=== PATIENT | male | born 1955 | race Caucasian/White ===

== ENCOUNTER 2016-06-02 07:14 | Inpatient (IN) | payer BC, MEDICAID ==
[~2016-06-02] VITALS: Ht 177.8 cm; Wt 86.2 kg
[~2016-06-02 07:14] MED LIST: ACET160S3 GT; ALBU1.257 IH; AMIN30LI4 GT; BISA10SU8 RC; CHLO15MO2 MM; CHOL100044 GT; DEXT1CAP3 GT; DEXT30DR6 EACHEYE; DOCU50LI GT; EPOE40003 SQ; IPRA0.2S9 IH; LEVO175T7 GT; MAGN400O6 GT; METO25TA20 GT; MULT1TAB11 GT; NA P133E RC; NUT.237L67 GT; SENN8.6T6 GT
[2016-06-02 07:28] VITALS: BP 158/82
[2016-06-02] MEDS ORDERED: IV NS 0.9% 1,000 ML BAG IV ONE (07:30)
[2016-06-02] MEDS ORDERED: IV NS 0.9% 1,000 ML ONE (07:32)
[2016-06-02 08:03] LABS: BASOPHILS % (AUTO) 0.1 % (0.0-2.0); DIFF TOTAL % 100 %; EOSINOPHILS # (AUTO) 0.2 /CMM (0.0-0.7); EOSINOPHILS % (AUTO) 1.3 % (0.0-6.0); HEMATOCRIT 33 % (39-51); HEMOGLOBIN 10.8 g/dL (13.5-17.5); LYMPHOCYTES % (AUTO) 6.4 % (20.0-44.0); MEAN CORPUSCULAR HEMOGLOBIN 27 PG (26.0-33.0); MEAN CORPUSCULAR HGB CONC 33 g/dl (31.0-36.0); MEAN CORPUSCULAR VOLUME 81 fL (80-96); MONOCYTES % (AUTO) 6.4 % (2.0-12.0); NEUTROPHILS # (AUTO) 12.8 /CMM (1.8-8.9); NEUTROPHILS % (AUTO) 85.8 % (43.0-81.0); PLATELET COUNT (AUTO) 347 /CMM (150-450); RED BLOOD CELL COUNT(AUTO) 4.06 MIL/uL (4.5-6.0); WHITE BLOOD COUNT (AUTO) 14.9 K/uL (4.3-11.0)
[2016-06-02 08:17] LABS: INR 1.09 (0.87-1.13); PROTHROMBIN TIME 11.8 SECS (9.5-12.7)
[2016-06-02 08:20] LABS: TROPONIN I 0.055 ng/mL (0.00-0.056)
[2016-06-02] MEDS ORDERED: CARV12.52 GT (08:24)
[2016-06-02] MEDS ORDERED: PANT40SU2 GT (08:24)
[2016-06-02] MEDS ORDERED: LEVE100S GT (08:24)
[2016-06-02] MEDS ORDERED: FERR220S2 GT (08:24)
[2016-06-02] MEDS ORDERED: ACET-2605 GT (08:24)
[2016-06-02] MEDS ORDERED: RIVA10TA GT (08:24)
[2016-06-02] MEDS ORDERED: ASCO500S2 GT (08:24)
[2016-06-02] MEDS ORDERED: ACET160S3 GT (08:24)
[2016-06-02] MEDS ORDERED: ALBU2.5V12 IH ×2 (08:24)
[2016-06-02] MEDS ORDERED: AMIO200T2 GT (08:24)
[2016-06-02] MEDS ORDERED: ZINC220C8 GT (08:24)
[2016-06-02] MEDS ORDERED: LEVO125T8 GT (08:24)
[2016-06-02] MEDS ORDERED: LACT-209 GT (08:26)
[2016-06-02 08:27] LABS: CALCIUM, SERUM 9.1 mg/dL (8.5-10.1); CREATININE 0.8 mg/dL (0.6-1.3); POTASSIUM 3.9 mmol/L (3.5-5.1)
[2016-06-02 08:31] LABS: LACTIC ACID 1.5 mmol/L (0.4-2.0)
[2016-06-02 08:33] LABS: BILIRUBIN,DIRECT 0.1 mg/dL (0.0-0.2); BILIRUBIN,TOTAL 0.5 mg/dL (0.2-1.0); INDIRECT BILIRUBIN 0.4 mg/dL (0.0-1.1); TOTAL PROTEIN, SERUM 6.8 g/dL (6.4-8.2)
[2016-06-02 08:54] VITALS: BP 106/65
[2016-06-02] MEDS ORDERED: IOHEXOL-350 100 ML VIAL IV ONE (09:01)
[2016-06-02] MEDS ORDERED: CT SWABBABLE VALVE TRANS SET 1 EA INFUS.SET MC ONE (09:01)
[2016-06-02] MEDS ORDERED: IV NS 0.9% 250 ML IV ONE ×2 (09:01→18:30)
[2016-06-02 09:02] LABS: ABG BASE EXCESS 4.9 mmol/L; ABG HCO3 28.8 mmol/L; ABG NOTIFIED BY AS RRT.; ABG PCO2 39.9 mmHg (35.0-45.0); ABG PH 7.476 (7.350-7.450); ABG PO2 141.6 mmHg (75.0-100.0); ABG TOTAL HEMOGLOBIN 11.1 G/dL (13.5-18.0); ALLEN TEST Pass; AaDO2 531.5 mmHg; O2Hb 97.7 % (94.0-97.0)
[2016-06-02 09:17] LABS: KETONES,URINE NEGATIVE (NEGATIVE); LEUKOCYTE ESTERASE ,URINE 2+ (NEGATIVE)
[2016-06-02] MEDS ORDERED: LEVOFLOXACIN 750 MG /D5W 150ML 150 ML IV ONE ×2 (09:25→09:30)
[2016-06-02] MEDS ORDERED: IV SET PRIMARY PUMP SET 1 EA INFUS.SET MC ONE ×3 (09:25→18:29)
[2016-06-02] MEDS ORDERED: VANCOMYCIN 1 GM in IV D5W 250 ML IV ONE (09:30)
[2016-06-02] MEDS ORDERED: PIPERACILLIN /TAZOBACTAM 3.375 G in IV D5W 50 ML IV ONE (09:30)
[2016-06-02 09:34] LABS: ADD UA MICROSCOPIC YES
[2016-06-02 09:43] LABS: RBC,URINE 81-100 /HPF (0-2)
[2016-06-02 09:44] LABS: ADD URINE CULTURE YES
[2016-06-02 12:30] VITALS: BP 99/57
[2016-06-02] MEDS ORDERED: BUMETANIDE INJ 6 MG in IV D5W 36 ML IV ONE (14:30)
[2016-06-02] MEDS ORDERED: PIPERACILLIN /TAZOBACTAM 3.375 G in IV D5W 50 ML IV SCH ×2 (14:30→18:00)
[2016-06-02] MEDS ORDERED: FEE PK DOSING 1 MIN EA MC ONE (15:28)
[2016-06-02] MEDS ORDERED: LEVOFLOXACIN 750 MG /D5W 150ML 750 MG in PREMIX 1 EA IV SCH (15:30)
[2016-06-02 16:00] VITALS: BP 104/47
[2016-06-02] MEDS ORDERED: ALBUTEROL FS 2.5 MG/0.5 ML VIAL.NEB IH PRN (17:00)
[2016-06-02] MEDS ORDERED: IPRATROPIUM NEB FS 0.5 MG/2.5 ML AMPUL.NEB IH PRN (17:00)
[2016-06-02] MEDS ORDERED: RIVAROXABAN 15 MG TABLET GT SCH (18:00)
[2016-06-02] MEDS ORDERED: SECONDARY IV SET 1 EA INFUS.SET MC ONE (18:30)
[2016-06-02] MEDS ORDERED: FIBERSOURCE HN 1,000 ML BOTTLE GT PRN (18:30)
[2016-06-02] MEDS ORDERED: ACETAMINOPHEN ES 500 MG TABLET GT PRN (18:30)
[2016-06-02] MEDS: DOCUSATE SODIUM LIQ 100 MG/10 ML UDC GT SCH (18:33)
[2016-06-02] MEDS: CHOLECALCIFEROL 1,000 UNIT TABLET (VIT D3) GT SCH (18:33)
[2016-06-02] MEDS: PIPERACILLIN /TAZOBACTAM 4.5 G in IV D5W 50 ML IV SCH (18:33)
[2016-06-02] MEDS: FERROUS SULFATE UDC 300 MG/5 ML UDC GT SCH (18:33)
[2016-06-02] MEDS: AMIODARONE HCL 200 MG TABLET GT SCH (18:35)
[2016-06-02] MEDS: PROSOURCE / PROSTAT (PYXIS) 30 ML UDC GT SCH (18:36)
[2016-06-02] MEDS: VANCOMYCIN 1 GM in IV D5W 250 ML IV SCH (19:28)
[2016-06-02 20:00] VITALS: BP 94/45
[2016-06-02] MEDS: ALBUTEROL FS 2.5 MG/0.5 ML VIAL.NEB IH SCH (20:02)
[2016-06-02] MEDS: IPRATROPIUM NEB FS 0.5 MG/2.5 ML AMPUL.NEB IH SCH (20:03)
[2016-06-02] MEDS: CARVEDILOL 12.5 MG TABLET GT SCH (21:00)
[2016-06-02] MEDS: LEVETIRACETAM SOL (5 ML) 100 MG/ML UDC GT SCH (22:11)
[2016-06-02] MEDS: SENNOSIDES 8.6 MG TABLET GT SCH (22:12)
[2016-06-03] VITALS (16 sets, daily range): BP systolic 68–109; BP diastolic 38–66
[2016-06-03] MEDS: PIPERACILLIN /TAZOBACTAM 4.5 G in IV D5W 50 ML IV SCH ×5 (00:08→23:19)
[2016-06-03] MEDS: IPRATROPIUM NEB FS 0.5 MG/2.5 ML AMPUL.NEB IH SCH ×4 (01:27→20:00)
[2016-06-03] MEDS: ALBUTEROL FS 2.5 MG/0.5 ML VIAL.NEB IH SCH ×4 (01:27→20:00)
[2016-06-03] MEDS: VANCOMYCIN 1 GM in IV D5W 250 ML IV SCH ×3 (01:41→18:00)
[2016-06-03] MEDS: LEVOTHYROXINE SODIUM 125 MCG TABLET PO SCH (06:40)
[2016-06-03 07:49] LABS: BASOPHILS % (AUTO) 0.3 % (0.0-2.0); DIFF TOTAL % 100 %; EOSINOPHILS # (AUTO) 0.4 /CMM (0.0-0.7); EOSINOPHILS % (AUTO) 4.1 % (0.0-6.0); HEMATOCRIT 29 % (39-51); HEMOGLOBIN 9.6 g/dL (13.5-17.5); LYMPHOCYTES # (AUTO) 0.6 /CMM (0.8-4.8); MEAN CORPUSCULAR HEMOGLOBIN 27 PG (26.0-33.0); MEAN CORPUSCULAR HGB CONC 33 g/dl (31.0-36.0); MEAN CORPUSCULAR VOLUME 82 fL (80-96); MONOCYTES # (AUTO) 0.7 /CMM (0.1-1.30); MONOCYTES % (AUTO) 6.4 % (2.0-12.0); NEUTROPHILS # (AUTO) 8.9 /CMM (1.8-8.9); NEUTROPHILS % (AUTO) 83.2 % (43.0-81.0); PLATELET COUNT (AUTO) 309 /CMM (150-450); RED BLOOD CELL COUNT(AUTO) 3.59 MIL/uL (4.5-6.0); WHITE BLOOD COUNT (AUTO) 10.6 K/uL (4.3-11.0)
[2016-06-03 07:58] LABS: CALCIUM, SERUM 8.2 mg/dL (8.5-10.1); CREATININE 0.9 mg/dL (0.6-1.3)
[2016-06-03 08:17] LABS: INR 1.16 (0.87-1.13); PROTHROMBIN TIME 12.6 SECS (9.5-12.7)
[2016-06-03 08:32] LABS: POTASSIUM 2.7 mmol/L (3.5-5.1)
[2016-06-03] MEDS ORDERED: IV NS 0.9% 250 ML IV ONE ×4 (08:51→20:54)
[2016-06-03] MEDS ORDERED: LEVOTHYROXINE SODIUM 125 MCG TABLET GT SCH (09:00)
[2016-06-03] MEDS ORDERED: VANCOMYCIN 1 GM in IV D5W 250 ML IV SCH (09:00)
[2016-06-03] MEDS: DOCUSATE SODIUM LIQ 100 MG/10 ML UDC GT SCH ×2 (09:00→16:44)
[2016-06-03] MEDS ORDERED: POTASSIUM CHLORIDE 20 MEQ POWDER PACKET GT ONE (09:00)
[2016-06-03] MEDS ORDERED: ASCORBIC ACID SYRUP 500 MG/5 ML UDC GT SCH (09:00)
[2016-06-03] MEDS: AMIODARONE HCL 200 MG TABLET GT SCH ×3 (09:00→16:44)
[2016-06-03] MEDS: CARVEDILOL 12.5 MG TABLET GT SCH ×2 (09:00→20:54)
[2016-06-03] MEDS ORDERED: CHOLECALCIFEROL 1,000 UNIT TABLET (VIT D3) GT SCH (09:00)
[2016-06-03] MEDS ORDERED: LEVETIRACETAM SOL (5 ML) 100 MG/ML UDC GT SCH (09:10)
[2016-06-03] MEDS ORDERED: SECONDARY IV SET 1 EA INFUS.SET MC ONE (09:31)
[2016-06-03] MEDS: CHOLECALCIFEROL 1,000 UNIT TABLET (VIT D3) GT SCH (09:46)
[2016-06-03] MEDS: MULTIVITAMINS,THERAPEUTIC 1 UDTAB TABLET GT SCH (09:46)
[2016-06-03] MEDS: PANTOPRAZOLE 40 MG/PACK PACK GT SCH (09:46)
[2016-06-03] MEDS: ZINC SULFATE 220 MG CAPSULE GT SCH (09:46)
[2016-06-03] MEDS: ACETAMINOPHEN 650 MG/20.3 ML UDC GT SCH (09:47)
[2016-06-03] MEDS: PROSOURCE / PROSTAT (PYXIS) 30 ML UDC GT SCH ×2 (09:47→16:44)
[2016-06-03] MEDS: FERROUS SULFATE UDC 300 MG/5 ML UDC GT SCH ×2 (09:47→16:44)
[2016-06-03] MEDS: LEVETIRACETAM SOL (5 ML) 100 MG/ML UDC GT SCH ×2 (09:52→20:54)
[2016-06-03] MEDS: POTASSIUM CL. PREMIX PERIPHER. 50 ML IV SCH ×4 (10:01→12:36)
[2016-06-03] MEDS ORDERED: IV SET PRIMARY PUMP SET 1 EA INFUS.SET MC ONE ×2 (10:04→11:53)
[2016-06-03] MEDS: LEVOFLOXACIN 750 MG /D5W 150ML 750 MG in PREMIX 1 EA IV SCH ×2 (10:19→10:20)
[2016-06-03] MEDS: Z GUARD REMEDY 2 OZ OINT TP SCH (11:28)
[2016-06-03] MEDS ORDERED: IV NS 0.9% 500 ML IV ONE (11:45)
[2016-06-03 12:58] LABS: THYROID STIMULATING HORMONE 38.508 uIU/mL (0.358-3.74)
[2016-06-03] MEDS ORDERED: ASCORBIC ACID 500 MG TABLET PO SCH (13:00)
[2016-06-03 13:15] LABS: TROPONIN I 0.025 ng/mL (0.00-0.056)
[2016-06-03 14:38] LABS: THYROID STIMULATING HORMONE 37.466 uIU/mL (0.358-3.74); URIC ACID 5.1 mg/dL (2.6-7.2)
[2016-06-03] MEDS: FIBERSOURCE HN 1,000 ML BOTTLE GT PRN (18:25)
[2016-06-03] MEDS: SENNOSIDES 8.6 MG TABLET GT SCH (22:00)
[2016-06-04] VITALS (7 sets, daily range): BP systolic 84–109; BP diastolic 45–63
[2016-06-04] MEDS ORDERED: ALBUMIN 25% 25 GM in PREMIX 1 EA IV SCH (01:30)
[2016-06-04] MEDS ORDERED: ALBUMIN 25% 100 ML IV ONE (01:47)
[2016-06-04] MEDS ORDERED: IV SET PRIMARY PUMP SET 1 EA INFUS.SET MC ONE (01:49)
[2016-06-04] MEDS: IPRATROPIUM NEB FS 0.5 MG/2.5 ML AMPUL.NEB IH SCH ×4 (01:54→19:48)
[2016-06-04] MEDS: ALBUTEROL FS 2.5 MG/0.5 ML VIAL.NEB IH SCH ×4 (01:54→19:48)
[2016-06-04] MEDS: PIPERACILLIN /TAZOBACTAM 4.5 G in IV D5W 50 ML IV SCH ×4 (05:54→23:52)
[2016-06-04] MEDS: ACETAMINOPHEN 650 MG/20.3 ML UDC GT PRN (06:10)
[2016-06-04 06:11] LABS: BASOPHILS % (AUTO) 0.3 % (0.0-2.0); DIFF TOTAL % 100 %; EOSINOPHILS # (AUTO) 0.4 /CMM (0.0-0.7); EOSINOPHILS % (AUTO) 3.6 % (0.0-6.0); HEMATOCRIT 27 % (39-51); HEMOGLOBIN 8.7 g/dL (13.5-17.5); LYMPHOCYTES # (AUTO) 0.7 /CMM (0.8-4.8); LYMPHOCYTES % (AUTO) 6.6 % (20.0-44.0); MEAN CORPUSCULAR HEMOGLOBIN 27 PG (26.0-33.0); MEAN CORPUSCULAR HGB CONC 32 g/dl (31.0-36.0); MEAN CORPUSCULAR VOLUME 82 fL (80-96); MONOCYTES # (AUTO) 0.7 /CMM (0.1-1.30); MONOCYTES % (AUTO) 6.7 % (2.0-12.0); NEUTROPHILS % (AUTO) 82.8 % (43.0-81.0); PLATELET COUNT (AUTO) 257 /CMM (150-450); RED BLOOD CELL COUNT(AUTO) 3.27 MIL/uL (4.5-6.0); WHITE BLOOD COUNT (AUTO) 10.9 K/uL (4.3-11.0)
[2016-06-04 06:19] LABS: CALCIUM, SERUM 8.4 mg/dL (8.5-10.1); CREATININE 0.9 mg/dL (0.6-1.3); POTASSIUM 3.4 mmol/L (3.5-5.1)
[2016-06-04 06:20] LABS: INR 1.1 (0.87-1.13); PROTHROMBIN TIME 11.9 SECS (9.5-12.7)
[2016-06-04 06:25] LABS: BILIRUBIN,TOTAL 0.5 mg/dL (0.2-1.0)
[2016-06-04] MEDS: VANCOMYCIN 0.75 GM in IV D5W 250 ML IV SCH ×2 (08:30→17:02)
[2016-06-04] MEDS: PROSOURCE / PROSTAT (PYXIS) 30 ML UDC GT SCH ×2 (08:31→17:01)
[2016-06-04] MEDS: CHOLECALCIFEROL 1,000 UNIT TABLET (VIT D3) GT SCH (08:31)
[2016-06-04] MEDS: DOCUSATE SODIUM LIQ 100 MG/10 ML UDC GT SCH ×2 (08:31→17:01)
[2016-06-04] MEDS: FERROUS SULFATE UDC 300 MG/5 ML UDC GT SCH ×2 (08:31→17:00)
[2016-06-04] MEDS: MULTIVITAMINS,THERAPEUTIC 1 UDTAB TABLET GT SCH (08:31)
[2016-06-04] MEDS: ACETAMINOPHEN 650 MG/20.3 ML UDC GT SCH (08:31)
[2016-06-04] MEDS: ASCORBIC ACID 500 MG TABLET GT SCH (08:32)
[2016-06-04] MEDS: PANTOPRAZOLE 40 MG/PACK PACK GT SCH (08:32)
[2016-06-04] MEDS: LACTOBACILLUS RHAMNOSUS GG 1 EACH CAP.SPRINK GT SCH ×2 (08:32→17:00)
[2016-06-04] MEDS: ZINC SULFATE 220 MG CAPSULE GT SCH (08:32)
[2016-06-04] MEDS: LEVETIRACETAM SOL (5 ML) 100 MG/ML UDC GT SCH ×2 (08:36→21:02)
[2016-06-04] MEDS: AMIODARONE HCL 200 MG TABLET GT SCH ×3 (08:37→17:00)
[2016-06-04] MEDS: CARVEDILOL 12.5 MG TABLET GT SCH ×2 (08:37→21:00)
[2016-06-04] MEDS: LEVOTHYROXINE SODIUM 125 MCG TABLET PO SCH (09:09)
[2016-06-04] MEDS: Z GUARD REMEDY 2 OZ OINT TP SCH (09:10)
[2016-06-04] MEDS ORDERED: SECONDARY IV SET 1 EA INFUS.SET MC ONE (12:15)
[2016-06-04] MEDS: POTASSIUM CL. PREMIX PERIPHER. 50 ML IV SCH ×2 (12:20→14:03)
[2016-06-04 15:04] LABS: GLUCOSE,BODY FLUID 140 mg/dL; LDH, BODY FLUID 136 U/L; PROTEIN, BODY FLUID 2.8 G/DL
[2016-06-04] MEDS: FIBERSOURCE HN 1,000 ML BOTTLE GT PRN (15:09)
[2016-06-04 15:53] LABS: APPEARANCE,UNSPUN,BODY FLUID SLIGHTLY CLOUDY (CLEAR)
[2016-06-04 15:54] LABS: COLOR,BODY FLUID LT YELLOW (LT YELLOW); WBC, BODY FLUID 640 /cu. mm. (0-200)
[2016-06-04 16:58] LABS: MACROPHAGES, BODY FLUID 17; POLYNUCLEAR, BODY FLUID 34 % (0-25)
[2016-06-04 18:40] LABS: RBC, BODY FLUID 680 /cu. mm. (0-2000)
[2016-06-04] MEDS: SENNOSIDES 8.6 MG TABLET GT SCH (21:01)
[2016-06-05] VITALS (8 sets, daily range): BP systolic 90–127; BP diastolic 43–56
[2016-06-05] MEDS: VANCOMYCIN 0.75 GM in IV D5W 250 ML IV SCH ×2 (00:51→08:13)
[2016-06-05] MEDS: ALBUTEROL FS 2.5 MG/0.5 ML VIAL.NEB IH SCH ×4 (01:38→19:15)
[2016-06-05] MEDS: IPRATROPIUM NEB FS 0.5 MG/2.5 ML AMPUL.NEB IH SCH ×4 (01:38→19:15)
[2016-06-05] MEDS: PIPERACILLIN /TAZOBACTAM 4.5 G in IV D5W 50 ML IV SCH ×4 (06:15→23:57)
[2016-06-05 06:37] LABS: BASOPHILS % (AUTO) 0.3 % (0.0-2.0); DIFF TOTAL % 100 %; EOSINOPHILS # (AUTO) 0.6 /CMM (0.0-0.7); EOSINOPHILS % (AUTO) 5.4 % (0.0-6.0); HEMATOCRIT 27 % (39-51); HEMOGLOBIN 8.9 g/dL (13.5-17.5); MEAN CORPUSCULAR HEMOGLOBIN 27 PG (26.0-33.0); MEAN CORPUSCULAR HGB CONC 33 g/dl (31.0-36.0); MEAN CORPUSCULAR VOLUME 83 fL (80-96); MONOCYTES # (AUTO) 0.9 /CMM (0.1-1.30); MONOCYTES % (AUTO) 7.7 % (2.0-12.0); NEUTROPHILS # (AUTO) 9.4 /CMM (1.8-8.9); NEUTROPHILS % (AUTO) 78.6 % (43.0-81.0); PLATELET COUNT (AUTO) 296 /CMM (150-450); RED BLOOD CELL COUNT(AUTO) 3.26 MIL/uL (4.5-6.0)
[2016-06-05 06:51] LABS: CREATININE 0.8 mg/dL (0.6-1.3); POTASSIUM 3.7 mmol/L (3.5-5.1)
[2016-06-05] MEDS ORDERED: IV NS 0.9% 250 ML IV ONE (07:53)
[2016-06-05] MEDS: LEVETIRACETAM SOL (5 ML) 100 MG/ML UDC GT SCH ×2 (08:13→21:20)
[2016-06-05] MEDS: CHOLECALCIFEROL 1,000 UNIT TABLET (VIT D3) GT SCH (08:13)
[2016-06-05] MEDS: FERROUS SULFATE UDC 300 MG/5 ML UDC GT SCH ×2 (08:13→16:12)
[2016-06-05] MEDS: ACETAMINOPHEN 650 MG/20.3 ML UDC GT SCH (08:13)
[2016-06-05] MEDS: LACTOBACILLUS RHAMNOSUS GG 1 EACH CAP.SPRINK GT SCH ×2 (08:14→16:12)
[2016-06-05] MEDS: PROSOURCE / PROSTAT (PYXIS) 30 ML UDC GT SCH ×2 (08:14→16:12)
[2016-06-05] MEDS: ASCORBIC ACID 500 MG TABLET GT SCH (08:14)
[2016-06-05] MEDS: ZINC SULFATE 220 MG CAPSULE GT SCH (08:14)
[2016-06-05] MEDS: PANTOPRAZOLE 40 MG/PACK PACK GT SCH (08:14)
[2016-06-05] MEDS: DOCUSATE SODIUM LIQ 100 MG/10 ML UDC GT SCH ×2 (08:14→16:12)
[2016-06-05] MEDS: MULTIVITAMINS,THERAPEUTIC 1 UDTAB TABLET GT SCH (08:14)
[2016-06-05] MEDS: LEVOTHYROXINE SODIUM 125 MCG TABLET PO SCH (08:14)
[2016-06-05] MEDS: AMIODARONE HCL 200 MG TABLET GT SCH ×3 (08:15→16:12)
[2016-06-05] MEDS: CARVEDILOL 12.5 MG TABLET GT SCH ×2 (08:15→21:21)
[2016-06-05] MEDS: Z GUARD REMEDY 2 OZ OINT TP SCH (08:16)
[2016-06-05] MEDS: LEVOFLOXACIN 750 MG /D5W 150ML 750 MG in PREMIX 1 EA IV SCH (10:15)
[2016-06-05] MEDS ORDERED: HYDROGEL DRESSING 90 GM TUBE TP PRN (11:00)
[2016-06-05] MEDS: DAKINS QUARTER STRENGTH (0.125%) 480 ML BOTTLE TOP SCH (12:13)
[2016-06-05] MEDS: HYDROGEL DRESSING 90 GM TUBE TP SCH (12:13)
[2016-06-05] MEDS: SENNOSIDES 8.6 MG TABLET GT SCH (21:20)
[2016-06-06] VITALS: BP 104/59
[2016-06-06] MEDS: IPRATROPIUM NEB FS 0.5 MG/2.5 ML AMPUL.NEB IH SCH ×4 (01:39→19:27)
[2016-06-06] MEDS: ALBUTEROL FS 2.5 MG/0.5 ML VIAL.NEB IH SCH ×4 (01:39→19:27)
[2016-06-06 04:00] VITALS: BP 101/47
[2016-06-06] MEDS: PIPERACILLIN /TAZOBACTAM 4.5 G in IV D5W 50 ML IV SCH ×4 (05:28→23:41)
[2016-06-06] MEDS ORDERED: IV NS 0.9% 250 ML IV ONE (06:33)
[2016-06-06] MEDS: IV NS 0.9% 250 ML IV PRN (06:38)
[2016-06-06 08:00] VITALS: BP 94/48
[2016-06-06] MEDS: PANTOPRAZOLE 40 MG/PACK PACK GT SCH (08:08)
[2016-06-06] MEDS: FERROUS SULFATE UDC 300 MG/5 ML UDC GT SCH ×2 (08:08→17:17)
[2016-06-06] MEDS: ACETAMINOPHEN 650 MG/20.3 ML UDC GT SCH (08:08)
[2016-06-06] MEDS: DOCUSATE SODIUM LIQ 100 MG/10 ML UDC GT SCH ×2 (08:08→17:17)
[2016-06-06] MEDS: PROSOURCE / PROSTAT (PYXIS) 30 ML UDC GT SCH ×2 (08:08→17:17)
[2016-06-06] MEDS: LEVETIRACETAM SOL (5 ML) 100 MG/ML UDC GT SCH ×2 (08:08→21:20)
[2016-06-06] MEDS: ZINC SULFATE 220 MG CAPSULE GT SCH (08:09)
[2016-06-06] MEDS: ASCORBIC ACID 500 MG TABLET GT SCH (08:09)
[2016-06-06] MEDS: MULTIVITAMINS,THERAPEUTIC 1 UDTAB TABLET GT SCH (08:09)
[2016-06-06] MEDS: CARVEDILOL 12.5 MG TABLET GT SCH ×2 (08:09→21:00)
[2016-06-06] MEDS: LEVOTHYROXINE SODIUM 125 MCG TABLET PO SCH (08:09)
[2016-06-06] MEDS: CHOLECALCIFEROL 1,000 UNIT TABLET (VIT D3) GT SCH (08:09)
[2016-06-06] MEDS: LACTOBACILLUS RHAMNOSUS GG 1 EACH CAP.SPRINK GT SCH ×2 (08:09→17:17)
[2016-06-06] MEDS: AMIODARONE HCL 200 MG TABLET GT SCH ×2 (08:10→12:48)
[2016-06-06] MEDS: DAKINS QUARTER STRENGTH (0.125%) 480 ML BOTTLE TOP SCH (08:11)
[2016-06-06] MEDS: HYDROGEL DRESSING 90 GM TUBE TP SCH (08:11)
[2016-06-06] MEDS: Z GUARD REMEDY 2 OZ OINT TP SCH (08:12)
[2016-06-06 08:26] LABS: CALCIUM, SERUM 8.1 mg/dL (8.5-10.1); CREATININE 0.8 mg/dL (0.6-1.3); POTASSIUM 4.5 mmol/L (3.5-5.1)
[2016-06-06] MEDS: FIBERSOURCE HN 1,000 ML BOTTLE GT PRN (08:26)
[2016-06-06] MEDS: LEVOFLOXACIN 750 MG /D5W 150ML 750 MG in PREMIX 1 EA IV SCH (10:12)
[2016-06-06] MEDS: VANCOMYCIN 1 GM in IV D5W 250 ML IV SCH (10:21)
[2016-06-06 12:00] VITALS: BP 89/50
[2016-06-06 16:00] VITALS: BP 104/54
[2016-06-06] MEDS ORDERED: AMIODARONE HCL 200 MG TABLET GT SCH (17:00)
[2016-06-06 20:00] VITALS: BP 102/56
[2016-06-06] MEDS: SENNOSIDES 8.6 MG TABLET GT SCH (21:20)
[2016-06-07] VITALS: BP 113/71
[2016-06-07] MEDS: IPRATROPIUM NEB FS 0.5 MG/2.5 ML AMPUL.NEB IH SCH ×4 (01:28→19:27)
[2016-06-07] MEDS: ALBUTEROL FS 2.5 MG/0.5 ML VIAL.NEB IH SCH ×4 (01:29→19:27)
[2016-06-07 04:00] VITALS: BP_SYST 102; BP_SYST 111; BP_DIAS 55; BP_DIAS 67
[2016-06-07] MEDS ORDERED: SECONDARY IV SET 1 EA INFUS.SET MC ONE ×2 (05:23→10:25)
[2016-06-07] MEDS ORDERED: IV SET PRIMARY PUMP SET 1 EA INFUS.SET MC ONE ×2 (05:23→14:07)
[2016-06-07] MEDS: IV NS 0.9% 250 ML IV PRN (05:30)
[2016-06-07] MEDS: PIPERACILLIN /TAZOBACTAM 4.5 G in IV D5W 50 ML IV SCH ×3 (05:30→18:54)
[2016-06-07 06:03] LABS: DIFF TOTAL % 100 %; EOSINOPHILS # (AUTO) 0.6 /CMM (0.0-0.7); EOSINOPHILS % (AUTO) 4.5 % (0.0-6.0); HEMATOCRIT 29 % (39-51); HEMOGLOBIN 9.5 g/dL (13.5-17.5); LYMPHOCYTES # (AUTO) 0.7 /CMM (0.8-4.8); MEAN CORPUSCULAR HEMOGLOBIN 27 PG (26.0-33.0); MEAN CORPUSCULAR HGB CONC 33 g/dl (31.0-36.0); MEAN CORPUSCULAR VOLUME 83 fL (80-96); MONOCYTES # (AUTO) 0.7 /CMM (0.1-1.30); MONOCYTES % (AUTO) 5.7 % (2.0-12.0); NEUTROPHILS # (AUTO) 10.3 /CMM (1.8-8.9); NEUTROPHILS % (AUTO) 83.8 % (43.0-81.0); PLATELET COUNT (AUTO) 296 /CMM (150-450); RED BLOOD CELL COUNT(AUTO) 3.52 MIL/uL (4.5-6.0); WHITE BLOOD COUNT (AUTO) 12.3 K/uL (4.3-11.0)
[2016-06-07 06:27] LABS: CALCIUM, SERUM 8.5 mg/dL (8.5-10.1); CREATININE 0.8 mg/dL (0.6-1.3); POTASSIUM 4.8 mmol/L (3.5-5.1)
[2016-06-07 06:38] LABS: INR 1.05 (0.87-1.13); PROTHROMBIN TIME 11.4 SECS (9.5-12.7)
[2016-06-07] MEDS: LEVOTHYROXINE SODIUM 125 MCG TABLET PO SCH (06:55)
[2016-06-07 08:00] VITALS: BP 106/63
[2016-06-07] MEDS ORDERED: LIDOCAINE HCL/PF 1% 30 ML SDV ONE (08:11)
[2016-06-07] MEDS ORDERED: LIDOCAINE MPF 1%-EPI 1:200,000 30 ML VIAL IJ ONE (08:12)
[2016-06-07] MEDS ORDERED: HYDROMORPHONE 1 MG/1 ML DISP.SYRIN IV PRN (08:30)
[2016-06-07] MEDS: DAKINS QUARTER STRENGTH (0.125%) 480 ML BOTTLE TOP SCH (09:31)
[2016-06-07] MEDS: DOCUSATE SODIUM LIQ 100 MG/10 ML UDC GT SCH ×2 (09:33→16:21)
[2016-06-07] MEDS: HYDROGEL DRESSING 90 GM TUBE TP SCH (09:33)
[2016-06-07] MEDS: FERROUS SULFATE UDC 300 MG/5 ML UDC GT SCH ×2 (09:34→16:20)
[2016-06-07] MEDS: LACTOBACILLUS RHAMNOSUS GG 1 EACH CAP.SPRINK GT SCH ×2 (09:34→16:21)
[2016-06-07] MEDS: MULTIVITAMINS,THERAPEUTIC 1 UDTAB TABLET GT SCH (09:34)
[2016-06-07] MEDS: ACETAMINOPHEN 650 MG/20.3 ML UDC GT SCH (09:34)
[2016-06-07] MEDS: ZINC SULFATE 220 MG CAPSULE GT SCH (09:34)
[2016-06-07] MEDS: LEVETIRACETAM SOL (5 ML) 100 MG/ML UDC GT SCH ×2 (09:34→21:04)
[2016-06-07] MEDS: ASCORBIC ACID 500 MG TABLET GT SCH (09:34)
[2016-06-07] MEDS: CHOLECALCIFEROL 1,000 UNIT TABLET (VIT D3) GT SCH (09:34)
[2016-06-07] MEDS: PANTOPRAZOLE 40 MG/PACK PACK GT SCH (09:34)
[2016-06-07] MEDS: PROSOURCE / PROSTAT (PYXIS) 30 ML UDC GT SCH ×2 (09:34→16:20)
[2016-06-07] MEDS: AMIODARONE HCL 200 MG TABLET GT SCH (09:35)
[2016-06-07] MEDS: CARVEDILOL 12.5 MG TABLET GT SCH ×2 (09:35→21:00)
[2016-06-07] MEDS: Z GUARD REMEDY 2 OZ OINT TP SCH (10:23)
[2016-06-07] MEDS: VANCOMYCIN 1 GM in IV D5W 250 ML IV SCH (10:23)
[2016-06-07] MEDS ORDERED: ANESTHESIA TRAY IN PYXIS 1 EA TRAY MC ONE (10:26)
[2016-06-07] MEDS: LEVOFLOXACIN 750 MG /D5W 150ML 750 MG in PREMIX 1 EA IV SCH (10:28)
[2016-06-07 12:00] VITALS: BP 91/56
[2016-06-07] MEDS ORDERED: IV NS 0.9% 1,000 ML ONE (14:08)
[2016-06-07] MEDS ORDERED: IV NS 0.9% 1,000 ML IV ONE (14:30)
[2016-06-07 16:00] VITALS: BP 107/58
[2016-06-07 20:00] VITALS: BP 93/56
[2016-06-07] MEDS: SENNOSIDES 8.6 MG TABLET GT SCH (21:04)
[2016-06-08] VITALS: BP 115/56
[2016-06-08] MEDS: PIPERACILLIN /TAZOBACTAM 4.5 G in IV D5W 50 ML IV SCH ×4 (00:13→18:16)
[2016-06-08] MEDS: ALBUTEROL FS 2.5 MG/0.5 ML VIAL.NEB IH SCH ×4 (01:51→19:42)
[2016-06-08] MEDS: IPRATROPIUM NEB FS 0.5 MG/2.5 ML AMPUL.NEB IH SCH ×4 (01:51→19:41)
[2016-06-08 04:00] VITALS: BP 99/60
[2016-06-08] MEDS: IV NS 0.9% 250 ML IV PRN (05:09)
[2016-06-08 06:57] LABS: BASOPHILS % (AUTO) 0.3 % (0.0-2.0); DIFF TOTAL % 100 %; EOSINOPHILS # (AUTO) 0.5 /CMM (0.0-0.7); EOSINOPHILS % (AUTO) 3.7 % (0.0-6.0); HEMATOCRIT 29 % (39-51); HEMOGLOBIN 9.2 g/dL (13.5-17.5); MEAN CORPUSCULAR HEMOGLOBIN 27 PG (26.0-33.0); MEAN CORPUSCULAR HGB CONC 32 g/dl (31.0-36.0); MEAN CORPUSCULAR VOLUME 82 fL (80-96); MONOCYTES # (AUTO) 0.8 /CMM (0.1-1.30); NEUTROPHILS # (AUTO) 11.4 /CMM (1.8-8.9); PLATELET COUNT (AUTO) 295 /CMM (150-450); RED BLOOD CELL COUNT(AUTO) 3.47 MIL/uL (4.5-6.0); WHITE BLOOD COUNT (AUTO) 13.8 K/uL (4.3-11.0)
[2016-06-08 07:14] LABS: CALCIUM, SERUM 8.5 mg/dL (8.5-10.1); CREATININE 0.9 mg/dL (0.6-1.3)
[2016-06-08 08:00] VITALS: BP 102/60
[2016-06-08] MEDS: LEVOTHYROXINE SODIUM 125 MCG TABLET PO SCH (08:23)
[2016-06-08] MEDS: DOCUSATE SODIUM LIQ 100 MG/10 ML UDC GT SCH ×2 (08:23→16:54)
[2016-06-08] MEDS: FERROUS SULFATE UDC 300 MG/5 ML UDC GT SCH ×2 (08:24→16:54)
[2016-06-08] MEDS: LACTOBACILLUS RHAMNOSUS GG 1 EACH CAP.SPRINK GT SCH ×2 (08:24→16:54)
[2016-06-08] MEDS: LEVETIRACETAM SOL (5 ML) 100 MG/ML UDC GT SCH ×2 (08:25→21:00)
[2016-06-08] MEDS: PANTOPRAZOLE 40 MG/PACK PACK GT SCH (08:25)
[2016-06-08] MEDS: PROSOURCE / PROSTAT (PYXIS) 30 ML UDC GT SCH ×2 (08:25→16:54)
[2016-06-08] MEDS: ASCORBIC ACID 500 MG TABLET GT SCH (08:25)
[2016-06-08] MEDS: CHOLECALCIFEROL 1,000 UNIT TABLET (VIT D3) GT SCH (08:25)
[2016-06-08] MEDS: ZINC SULFATE 220 MG CAPSULE GT SCH (08:25)
[2016-06-08] MEDS: ACETAMINOPHEN 650 MG/20.3 ML UDC GT SCH (08:25)
[2016-06-08] MEDS: MULTIVITAMINS,THERAPEUTIC 1 UDTAB TABLET GT SCH (08:25)
[2016-06-08] MEDS: VANCOMYCIN 1 GM in IV D5W 250 ML IV SCH (08:26)
[2016-06-08] MEDS: HYDROGEL DRESSING 90 GM TUBE TP SCH (08:27)
[2016-06-08] MEDS: DAKINS QUARTER STRENGTH (0.125%) 480 ML BOTTLE TOP SCH (08:27)
[2016-06-08] MEDS: Z GUARD REMEDY 2 OZ OINT TP SCH (08:27)
[2016-06-08] MEDS: CARVEDILOL 12.5 MG TABLET GT SCH ×2 (08:30→21:00)
[2016-06-08] MEDS: AMIODARONE HCL 200 MG TABLET GT SCH (08:30)
[2016-06-08] MEDS: FIBERSOURCE HN 1,000 ML BOTTLE GT PRN (09:20)
[2016-06-08] MEDS: LEVOFLOXACIN 750 MG /D5W 150ML 750 MG in PREMIX 1 EA IV SCH (09:47)
[2016-06-08 12:00] VITALS: BP 130/71
[2016-06-08 16:00] VITALS: BP 98/54
[2016-06-08 20:00] VITALS: BP 114/57
[2016-06-08] MEDS: SENNOSIDES 8.6 MG TABLET GT SCH (21:00)
[2016-06-09] VITALS: BP 101/54
[2016-06-09] MEDS: FIBERSOURCE HN 1,000 ML BOTTLE GT PRN (00:05)
[2016-06-09] MEDS: PIPERACILLIN /TAZOBACTAM 4.5 G in IV D5W 50 ML IV SCH ×4 (00:05→17:01)
[2016-06-09] MEDS: IPRATROPIUM NEB FS 0.5 MG/2.5 ML AMPUL.NEB IH SCH ×3 (01:43→20:03)
[2016-06-09] MEDS: ALBUTEROL FS 2.5 MG/0.5 ML VIAL.NEB IH SCH ×3 (01:43→20:03)
[2016-06-09 04:00] VITALS: BP 99/45
[2016-06-09 06:46] LABS: BASOPHILS % (AUTO) 0.3 % (0.0-2.0); DIFF TOTAL % 100 %; EOSINOPHILS # (AUTO) 0.4 /CMM (0.0-0.7); EOSINOPHILS % (AUTO) 3.6 % (0.0-6.0); HEMATOCRIT 31 % (39-51); HEMOGLOBIN 9.8 g/dL (13.5-17.5); LYMPHOCYTES % (AUTO) 8.3 % (20.0-44.0); MEAN CORPUSCULAR HEMOGLOBIN 27 PG (26.0-33.0); MEAN CORPUSCULAR HGB CONC 32 g/dl (31.0-36.0); MEAN CORPUSCULAR VOLUME 83 fL (80-96); MONOCYTES # (AUTO) 0.8 /CMM (0.1-1.30); MONOCYTES % (AUTO) 6.1 % (2.0-12.0); NEUTROPHILS # (AUTO) 10.1 /CMM (1.8-8.9); NEUTROPHILS % (AUTO) 81.7 % (43.0-81.0); PLATELET COUNT (AUTO) 309 /CMM (150-450); RED BLOOD CELL COUNT(AUTO) 3.67 MIL/uL (4.5-6.0); WHITE BLOOD COUNT (AUTO) 12.3 K/uL (4.3-11.0)
[2016-06-09 07:15] LABS: CALCIUM, SERUM 8.6 mg/dL (8.5-10.1); CREATININE 0.9 mg/dL (0.6-1.3); POTASSIUM 4.9 mmol/L (3.5-5.1)
[2016-06-09 08:00] VITALS: BP 126/60
[2016-06-09] MEDS: ZINC SULFATE 220 MG CAPSULE GT SCH (08:30)
[2016-06-09] MEDS: ASCORBIC ACID 500 MG TABLET GT SCH (08:30)
[2016-06-09] MEDS: MULTIVITAMINS,THERAPEUTIC 1 UDTAB TABLET GT SCH (08:30)
[2016-06-09] MEDS: FERROUS SULFATE UDC 300 MG/5 ML UDC GT SCH ×2 (08:30→17:01)
[2016-06-09] MEDS: LEVETIRACETAM SOL (5 ML) 100 MG/ML UDC GT SCH ×2 (08:30→20:27)
[2016-06-09] MEDS: PANTOPRAZOLE 40 MG/PACK PACK GT SCH (08:30)
[2016-06-09] MEDS: ACETAMINOPHEN 650 MG/20.3 ML UDC GT SCH (08:30)
[2016-06-09] MEDS: CHOLECALCIFEROL 1,000 UNIT TABLET (VIT D3) GT SCH (08:30)
[2016-06-09] MEDS: PROSOURCE / PROSTAT (PYXIS) 30 ML UDC GT SCH ×2 (08:30→17:01)
[2016-06-09] MEDS: LACTOBACILLUS RHAMNOSUS GG 1 EACH CAP.SPRINK GT SCH ×2 (08:30→17:02)
[2016-06-09] MEDS: DOCUSATE SODIUM LIQ 100 MG/10 ML UDC GT SCH ×2 (08:30→17:01)
[2016-06-09] MEDS: AMIODARONE HCL 200 MG TABLET GT SCH (08:31)
[2016-06-09] MEDS: CARVEDILOL 12.5 MG TABLET GT SCH ×2 (08:31→20:28)
[2016-06-09] MEDS: DAKINS QUARTER STRENGTH (0.125%) 480 ML BOTTLE TOP SCH (08:32)
[2016-06-09] MEDS: Z GUARD REMEDY 2 OZ OINT TP SCH (08:33)
[2016-06-09] MEDS: HYDROGEL DRESSING 90 GM TUBE TP SCH (08:33)
[2016-06-09] MEDS: VANCOMYCIN 1 GM in IV D5W 250 ML IV SCH (08:34)
[2016-06-09] MEDS: LEVOTHYROXINE SODIUM 125 MCG TABLET PO SCH (08:34)
[2016-06-09] MEDS: LEVOFLOXACIN 750 MG /D5W 150ML 750 MG in PREMIX 1 EA IV SCH (10:16)
[2016-06-09 12:00] VITALS: BP 103/61
[2016-06-09 16:00] VITALS: BP 125/62
[2016-06-09 20:00] VITALS: BP 101/62
[2016-06-09] MEDS: SENNOSIDES 8.6 MG TABLET GT SCH (21:19)
[2016-06-10] VITALS: BP 91/46
[2016-06-10] MEDS: PIPERACILLIN /TAZOBACTAM 4.5 G in IV D5W 50 ML IV SCH ×3 (00:38→12:48)
[2016-06-10] MEDS: IV NS 0.9% 250 ML IV PRN (00:43)
[2016-06-10] MEDS: ALBUTEROL FS 2.5 MG/0.5 ML VIAL.NEB IH SCH ×4 (01:24→19:46)
[2016-06-10] MEDS: IPRATROPIUM NEB FS 0.5 MG/2.5 ML AMPUL.NEB IH SCH ×4 (01:24→19:46)
[2016-06-10] MEDS ORDERED: VANCOMYCIN 1 GM in IV D5W 250 ML IV SCH (03:00)
[2016-06-10 04:00] VITALS: BP 98/30
[2016-06-10 06:27] LABS: BASOPHILS % (AUTO) 0.2 % (0.0-2.0); DIFF TOTAL % 100 %; EOSINOPHILS # (AUTO) 0.4 /CMM (0.0-0.7); EOSINOPHILS % (AUTO) 3.4 % (0.0-6.0); HEMATOCRIT 28 % (39-51); LYMPHOCYTES % (AUTO) 8.6 % (20.0-44.0); MEAN CORPUSCULAR HEMOGLOBIN 27 PG (26.0-33.0); MEAN CORPUSCULAR HGB CONC 33 g/dl (31.0-36.0); MEAN CORPUSCULAR VOLUME 82 fL (80-96); MONOCYTES # (AUTO) 0.8 /CMM (0.1-1.30); MONOCYTES % (AUTO) 6.5 % (2.0-12.0); NEUTROPHILS # (AUTO) 9.7 /CMM (1.8-8.9); NEUTROPHILS % (AUTO) 81.3 % (43.0-81.0); PLATELET COUNT (AUTO) 281 /CMM (150-450); RED BLOOD CELL COUNT(AUTO) 3.37 MIL/uL (4.5-6.0); WHITE BLOOD COUNT (AUTO) 11.9 K/uL (4.3-11.0)
[2016-06-10 08:00] VITALS: BP 89/52
[2016-06-10] MEDS: HYDROGEL DRESSING 90 GM TUBE TP SCH (08:03)
[2016-06-10] MEDS: DAKINS QUARTER STRENGTH (0.125%) 480 ML BOTTLE TOP SCH (08:03)
[2016-06-10] MEDS: Z GUARD REMEDY 2 OZ OINT TP SCH (08:03)
[2016-06-10] MEDS: POLYVINYL ALCOHOL 15 ML BOTTLE EACHEYE PRN (08:04)
[2016-06-10] MEDS: PANTOPRAZOLE 40 MG/PACK PACK GT SCH (08:05)
[2016-06-10] MEDS: ZINC SULFATE 220 MG CAPSULE GT SCH (08:05)
[2016-06-10] MEDS: PROSOURCE / PROSTAT (PYXIS) 30 ML UDC GT SCH ×2 (08:05→16:51)
[2016-06-10] MEDS: LACTOBACILLUS RHAMNOSUS GG 1 EACH CAP.SPRINK GT SCH ×2 (08:05→16:51)
[2016-06-10] MEDS: LEVETIRACETAM SOL (5 ML) 100 MG/ML UDC GT SCH ×2 (08:06→21:17)
[2016-06-10] MEDS: ASCORBIC ACID 500 MG TABLET GT SCH (08:06)
[2016-06-10] MEDS: ACETAMINOPHEN 650 MG/20.3 ML UDC GT SCH (08:06)
[2016-06-10] MEDS: CHOLECALCIFEROL 1,000 UNIT TABLET (VIT D3) GT SCH (08:06)
[2016-06-10] MEDS: LEVOTHYROXINE SODIUM 125 MCG TABLET PO SCH (08:06)
[2016-06-10] MEDS: AMIODARONE HCL 200 MG TABLET GT SCH (08:06)
[2016-06-10] MEDS: MULTIVITAMINS,THERAPEUTIC 1 UDTAB TABLET GT SCH (08:06)
[2016-06-10] MEDS: DOCUSATE SODIUM LIQ 100 MG/10 ML UDC GT SCH ×2 (08:06→16:10)
[2016-06-10] MEDS: FERROUS SULFATE UDC 300 MG/5 ML UDC GT SCH ×2 (08:06→16:51)
[2016-06-10] MEDS: CARVEDILOL 12.5 MG TABLET GT SCH ×2 (08:07→21:00)
[2016-06-10 08:12] LABS: CALCIUM, SERUM 8.4 mg/dL (8.5-10.1); CREATININE 0.9 mg/dL (0.6-1.3); POTASSIUM 4.6 mmol/L (3.5-5.1)
[2016-06-10] MEDS: LEVOFLOXACIN 750 MG /D5W 150ML 750 MG in PREMIX 1 EA IV SCH (10:10)
[2016-06-10] MEDS: FIBERSOURCE HN 1,000 ML BOTTLE GT PRN (10:10)
[2016-06-10 12:00] VITALS: BP 95/49
[2016-06-10 16:00] VITALS: BP 110/65
[2016-06-10] MEDS ORDERED: COLISTIMETHATE SODIUM 75 MG in IV NS 0.9% 50 ML IV SCH (16:00)
[2016-06-10] MEDS ORDERED: COLISTIMETHATE SODIUM 150 MG VIAL NEB SCH (16:30)
[2016-06-10] MEDS: COLISTIMETHATE SODIUM 100 MG in IV NS 0.9% 50 ML IV SCH (16:55)
[2016-06-10] MEDS ORDERED: SECONDARY IV SET 1 EA INFUS.SET MC ONE (18:30)
[2016-06-10 20:00] VITALS: BP 90/60
[2016-06-10] MEDS: LINEZOLID 600 MG TABLET PO SCH (21:17)
[2016-06-11] VITALS (8 sets, daily range): BP systolic 97–145; BP diastolic 52–90
[2016-06-11] MEDS: ALBUTEROL FS 2.5 MG/0.5 ML VIAL.NEB IH SCH ×4 (01:35→19:33)
[2016-06-11] MEDS: IPRATROPIUM NEB FS 0.5 MG/2.5 ML AMPUL.NEB IH SCH ×4 (01:35→19:33)
[2016-06-11] MEDS: COLISTIMETHATE SODIUM 100 MG in IV NS 0.9% 50 ML IV SCH ×2 (05:16→16:25)
[2016-06-11] MEDS: LEVOTHYROXINE SODIUM 125 MCG TABLET PO SCH (05:23)
[2016-06-11] MEDS: IV NS 0.9% 250 ML IV PRN (05:23)
[2016-06-11] MEDS: FIBERSOURCE HN 1,000 ML BOTTLE GT PRN (05:24)
[2016-06-11 08:08] LABS: BASOPHILS % (AUTO) 0.4 % (0.0-2.0); DIFF TOTAL % 100 %; EOSINOPHILS # (AUTO) 0.5 /CMM (0.0-0.7); EOSINOPHILS % (AUTO) 3.3 % (0.0-6.0); HEMATOCRIT 30 % (39-51); LYMPHOCYTES # (AUTO) 1.1 /CMM (0.8-4.8); LYMPHOCYTES % (AUTO) 8.2 % (20.0-44.0); MEAN CORPUSCULAR HEMOGLOBIN 27 PG (26.0-33.0); MEAN CORPUSCULAR HGB CONC 33 g/dl (31.0-36.0); MEAN CORPUSCULAR VOLUME 83 fL (80-96); MONOCYTES # (AUTO) 0.9 /CMM (0.1-1.30); MONOCYTES % (AUTO) 6.4 % (2.0-12.0); NEUTROPHILS # (AUTO) 11.1 /CMM (1.8-8.9); NEUTROPHILS % (AUTO) 81.7 % (43.0-81.0); PLATELET COUNT (AUTO) 296 /CMM (150-450); RED BLOOD CELL COUNT(AUTO) 3.67 MIL/uL (4.5-6.0); WHITE BLOOD COUNT (AUTO) 13.6 K/uL (4.3-11.0)
[2016-06-11 08:41] LABS: CALCIUM, SERUM 8.6 mg/dL (8.5-10.1); CREATININE 0.8 mg/dL (0.6-1.3); POTASSIUM 4.5 mmol/L (3.5-5.1)
[2016-06-11] MEDS: LACTOBACILLUS RHAMNOSUS GG 1 EACH CAP.SPRINK GT SCH ×2 (08:49→16:23)
[2016-06-11] MEDS: MULTIVITAMINS,THERAPEUTIC 1 UDTAB TABLET GT SCH (08:49)
[2016-06-11] MEDS: ASCORBIC ACID 500 MG TABLET GT SCH (08:49)
[2016-06-11] MEDS: CHOLECALCIFEROL 1,000 UNIT TABLET (VIT D3) GT SCH (08:50)
[2016-06-11] MEDS: FERROUS SULFATE UDC 300 MG/5 ML UDC GT SCH ×2 (08:50→16:22)
[2016-06-11] MEDS: PANTOPRAZOLE 40 MG/PACK PACK GT SCH (08:50)
[2016-06-11] MEDS: LEVETIRACETAM SOL (5 ML) 100 MG/ML UDC GT SCH ×2 (08:50→21:06)
[2016-06-11] MEDS: LINEZOLID 600 MG TABLET PO SCH ×2 (08:50→21:06)
[2016-06-11] MEDS: ZINC SULFATE 220 MG CAPSULE GT SCH (08:50)
[2016-06-11] MEDS: PROSOURCE / PROSTAT (PYXIS) 30 ML UDC GT SCH ×2 (08:50→16:22)
[2016-06-11] MEDS: AMIODARONE HCL 200 MG TABLET GT SCH (08:54)
[2016-06-11] MEDS: CARVEDILOL 12.5 MG TABLET GT SCH ×2 (08:55→21:00)
[2016-06-11] MEDS: DAKINS QUARTER STRENGTH (0.125%) 480 ML BOTTLE TOP SCH (09:16)
[2016-06-11] MEDS: ACETAMINOPHEN 650 MG/20.3 ML UDC GT SCH (09:16)
[2016-06-11] MEDS: Z GUARD REMEDY 2 OZ OINT TP SCH (09:17)
[2016-06-11] MEDS: HYDROGEL DRESSING 90 GM TUBE TP SCH (09:17)
[2016-06-11] MEDS: VANCOMYCIN HCL 125 MG/2.5 ML ORAL.SUSP PO SCH (17:07)
[2016-06-12] VITALS: BP 102/60
[2016-06-12] MEDS: VANCOMYCIN HCL 125 MG/2.5 ML ORAL.SUSP PO SCH ×5 (00:52→23:33)
[2016-06-12] MEDS: IPRATROPIUM NEB FS 0.5 MG/2.5 ML AMPUL.NEB IH SCH ×4 (00:57→20:18)
[2016-06-12] MEDS: ALBUTEROL FS 2.5 MG/0.5 ML VIAL.NEB IH SCH ×4 (00:57→20:18)
[2016-06-12 04:00] VITALS: BP 97/55
[2016-06-12] MEDS: COLISTIMETHATE SODIUM 100 MG in IV NS 0.9% 50 ML IV SCH ×2 (05:33→17:19)
[2016-06-12 06:20] LABS: BASOPHILS % (AUTO) 0.2 % (0.0-2.0); DIFF TOTAL % 100 %; EOSINOPHILS # (AUTO) 0.5 /CMM (0.0-0.7); EOSINOPHILS % (AUTO) 3.4 % (0.0-6.0); HEMATOCRIT 31 % (39-51); HEMOGLOBIN 10.1 g/dL (13.5-17.5); LYMPHOCYTES # (AUTO) 1.2 /CMM (0.8-4.8); LYMPHOCYTES % (AUTO) 8.1 % (20.0-44.0); MEAN CORPUSCULAR HEMOGLOBIN 27 PG (26.0-33.0); MEAN CORPUSCULAR HGB CONC 33 g/dl (31.0-36.0); MEAN CORPUSCULAR VOLUME 83 fL (80-96); MONOCYTES # (AUTO) 0.9 /CMM (0.1-1.30); NEUTROPHILS # (AUTO) 11.9 /CMM (1.8-8.9); NEUTROPHILS % (AUTO) 82.3 % (43.0-81.0); PLATELET COUNT (AUTO) 309 /CMM (150-450); RED BLOOD CELL COUNT(AUTO) 3.71 MIL/uL (4.5-6.0); WHITE BLOOD COUNT (AUTO) 14.4 K/uL (4.3-11.0)
[2016-06-12 06:39] LABS: CALCIUM, SERUM 8.3 mg/dL (8.5-10.1); CREATININE 0.8 mg/dL (0.6-1.3); POTASSIUM 3.8 mmol/L (3.5-5.1)
[2016-06-12 08:00] VITALS: BP 107/62
[2016-06-12] MEDS: LEVETIRACETAM SOL (5 ML) 100 MG/ML UDC GT SCH ×2 (08:46→20:06)
[2016-06-12] MEDS: FERROUS SULFATE UDC 300 MG/5 ML UDC GT SCH ×2 (08:46→17:19)
[2016-06-12] MEDS: PROSOURCE / PROSTAT (PYXIS) 30 ML UDC GT SCH ×2 (08:46→17:19)
[2016-06-12] MEDS: ACETAMINOPHEN 650 MG/20.3 ML UDC GT SCH (08:46)
[2016-06-12] MEDS: LINEZOLID 600 MG TABLET PO SCH ×2 (08:47→20:06)
[2016-06-12] MEDS: ASCORBIC ACID 500 MG TABLET GT SCH (08:47)
[2016-06-12] MEDS: MULTIVITAMINS,THERAPEUTIC 1 UDTAB TABLET GT SCH (08:47)
[2016-06-12] MEDS: LEVOTHYROXINE SODIUM 125 MCG TABLET PO SCH (08:47)
[2016-06-12] MEDS: ZINC SULFATE 220 MG CAPSULE GT SCH (08:47)
[2016-06-12] MEDS: CHOLECALCIFEROL 1,000 UNIT TABLET (VIT D3) GT SCH (08:47)
[2016-06-12] MEDS: PANTOPRAZOLE 40 MG/PACK PACK GT SCH (08:47)
[2016-06-12] MEDS: LACTOBACILLUS RHAMNOSUS GG 1 EACH CAP.SPRINK GT SCH ×2 (08:47→17:19)
[2016-06-12] MEDS: CARVEDILOL 12.5 MG TABLET GT SCH ×2 (08:48→20:06)
[2016-06-12] MEDS: AMIODARONE HCL 200 MG TABLET GT SCH (08:48)
[2016-06-12] MEDS: DAKINS QUARTER STRENGTH (0.125%) 480 ML BOTTLE TOP SCH (08:49)
[2016-06-12] MEDS: Z GUARD REMEDY 2 OZ OINT TP SCH (08:49)
[2016-06-12] MEDS: HYDROGEL DRESSING 90 GM TUBE TP SCH (08:50)
[2016-06-12 12:00] VITALS: BP 102/62
[2016-06-12 16:00] VITALS: BP 92/53
[2016-06-12] MEDS: FIBERSOURCE HN 1,000 ML BOTTLE GT PRN (17:20)
[2016-06-12 20:00] VITALS: BP 93/51
[2016-06-13] VITALS: BP 102/57
[2016-06-13] MEDS: ALBUTEROL FS 2.5 MG/0.5 ML VIAL.NEB IH SCH ×4 (01:13→20:13)
[2016-06-13] MEDS: IPRATROPIUM NEB FS 0.5 MG/2.5 ML AMPUL.NEB IH SCH ×4 (01:13→20:13)
[2016-06-13 04:00] VITALS: BP 98/58
[2016-06-13] MEDS: COLISTIMETHATE SODIUM 100 MG in IV NS 0.9% 50 ML IV SCH ×2 (04:57→16:56)
[2016-06-13] MEDS: VANCOMYCIN HCL 125 MG/2.5 ML ORAL.SUSP PO SCH ×4 (05:00→23:13)
[2016-06-13 07:08] LABS: CALCIUM, SERUM 8.5 mg/dL (8.5-10.1); CREATININE 0.7 mg/dL (0.6-1.3); POTASSIUM 3.7 mmol/L (3.5-5.1)
[2016-06-13 08:00] VITALS: BP 107/66
[2016-06-13] MEDS: AMIODARONE HCL 200 MG TABLET GT SCH (08:26)
[2016-06-13] MEDS: CARVEDILOL 12.5 MG TABLET GT SCH ×2 (08:27→21:00)
[2016-06-13] MEDS: FERROUS SULFATE UDC 300 MG/5 ML UDC GT SCH ×2 (08:28→16:54)
[2016-06-13] MEDS: ASCORBIC ACID 500 MG TABLET GT SCH (08:28)
[2016-06-13] MEDS: PROSOURCE / PROSTAT (PYXIS) 30 ML UDC GT SCH ×2 (08:28→16:54)
[2016-06-13] MEDS: LINEZOLID 600 MG TABLET PO SCH ×2 (08:28→21:06)
[2016-06-13] MEDS: LEVETIRACETAM SOL (5 ML) 100 MG/ML UDC GT SCH ×2 (08:28→21:06)
[2016-06-13] MEDS: LEVOTHYROXINE SODIUM 125 MCG TABLET PO SCH (08:28)
[2016-06-13] MEDS: PANTOPRAZOLE 40 MG/PACK PACK GT SCH (08:28)
[2016-06-13] MEDS: ACETAMINOPHEN 650 MG/20.3 ML UDC GT SCH (08:28)
[2016-06-13] MEDS: ZINC SULFATE 220 MG CAPSULE GT SCH (08:28)
[2016-06-13] MEDS: MULTIVITAMINS,THERAPEUTIC 1 UDTAB TABLET GT SCH (08:28)
[2016-06-13] MEDS: LACTOBACILLUS RHAMNOSUS GG 1 EACH CAP.SPRINK GT SCH ×2 (08:28→16:54)
[2016-06-13] MEDS: HYDROGEL DRESSING 90 GM TUBE TP SCH (08:29)
[2016-06-13] MEDS: DAKINS QUARTER STRENGTH (0.125%) 480 ML BOTTLE TOP SCH (08:29)
[2016-06-13] MEDS: CHOLECALCIFEROL 1,000 UNIT TABLET (VIT D3) GT SCH (08:29)
[2016-06-13] MEDS: Z GUARD REMEDY 2 OZ OINT TP SCH (08:29)
[2016-06-13 12:00] VITALS: BP 97/54
[2016-06-13 16:00] VITALS: BP 125/65
[2016-06-13 20:00] VITALS: BP 93/53
[2016-06-13] MEDS ORDERED: IV NS 0.9% 250 ML IV ONE (20:59)
[2016-06-13] MEDS ORDERED: SECONDARY IV SET 1 EA INFUS.SET MC ONE (20:59)
[2016-06-13] MEDS ORDERED: IV SET PRIMARY PUMP SET 1 EA INFUS.SET MC ONE (21:00)
[2016-06-13] MEDS: FIBERSOURCE HN 1,000 ML BOTTLE GT PRN (21:07)
[2016-06-13] MEDS: IV NS 0.9% 250 ML IV PRN (21:07)
[2016-06-14] VITALS (7 sets, daily range): BP systolic 84–106; BP diastolic 49–64
[2016-06-14] MEDS: ALBUTEROL FS 2.5 MG/0.5 ML VIAL.NEB IH SCH ×4 (01:42→19:52)
[2016-06-14] MEDS: IPRATROPIUM NEB FS 0.5 MG/2.5 ML AMPUL.NEB IH SCH ×4 (01:42→19:52)
[2016-06-14] MEDS: COLISTIMETHATE SODIUM 100 MG in IV NS 0.9% 50 ML IV SCH ×2 (05:20→17:40)
[2016-06-14] MEDS: VANCOMYCIN HCL 125 MG/2.5 ML ORAL.SUSP PO SCH ×4 (05:21→23:04)
[2016-06-14 07:09] LABS: BASOPHILS % (AUTO) 0.3 % (0.0-2.0); DIFF TOTAL % 100 %; EOSINOPHILS # (AUTO) 0.6 /CMM (0.0-0.7); HEMATOCRIT 31 % (39-51); HEMOGLOBIN 10.1 g/dL (13.5-17.5); LYMPHOCYTES # (AUTO) 0.9 /CMM (0.8-4.8); LYMPHOCYTES % (AUTO) 6.5 % (20.0-44.0); MEAN CORPUSCULAR HEMOGLOBIN 27 PG (26.0-33.0); MEAN CORPUSCULAR HGB CONC 33 g/dl (31.0-36.0); MEAN CORPUSCULAR VOLUME 83 fL (80-96); MONOCYTES # (AUTO) 0.9 /CMM (0.1-1.30); MONOCYTES % (AUTO) 6.2 % (2.0-12.0); NEUTROPHILS # (AUTO) 11.9 /CMM (1.8-8.9); PLATELET COUNT (AUTO) 264 /CMM (150-450); RED BLOOD CELL COUNT(AUTO) 3.77 MIL/uL (4.5-6.0); WHITE BLOOD COUNT (AUTO) 14.3 K/uL (4.3-11.0)
[2016-06-14 07:27] LABS: CREATININE 0.8 mg/dL (0.6-1.3); POTASSIUM 3.7 mmol/L (3.5-5.1)
[2016-06-14] MEDS: PROSOURCE / PROSTAT (PYXIS) 30 ML UDC GT SCH ×2 (08:08→16:48)
[2016-06-14] MEDS: LEVETIRACETAM SOL (5 ML) 100 MG/ML UDC GT SCH ×2 (08:08→20:50)
[2016-06-14] MEDS: ACETAMINOPHEN 650 MG/20.3 ML UDC GT SCH (08:08)
[2016-06-14] MEDS: CARVEDILOL 12.5 MG TABLET GT SCH ×2 (08:08→20:47)
[2016-06-14] MEDS: LACTOBACILLUS RHAMNOSUS GG 1 EACH CAP.SPRINK GT SCH ×2 (08:08→16:48)
[2016-06-14] MEDS: FERROUS SULFATE UDC 300 MG/5 ML UDC GT SCH ×2 (08:09→16:48)
[2016-06-14] MEDS: ASCORBIC ACID 500 MG TABLET GT SCH (08:09)
[2016-06-14] MEDS: ZINC SULFATE 220 MG CAPSULE GT SCH (08:09)
[2016-06-14] MEDS: MULTIVITAMINS,THERAPEUTIC 1 UDTAB TABLET GT SCH (08:09)
[2016-06-14] MEDS: CHOLECALCIFEROL 1,000 UNIT TABLET (VIT D3) GT SCH (08:09)
[2016-06-14] MEDS: LINEZOLID 600 MG TABLET PO SCH ×2 (08:09→20:50)
[2016-06-14] MEDS: LEVOTHYROXINE SODIUM 125 MCG TABLET PO SCH (08:09)
[2016-06-14] MEDS: PANTOPRAZOLE 40 MG/PACK PACK GT SCH (08:09)
[2016-06-14] MEDS: AMIODARONE HCL 200 MG TABLET GT SCH (08:10)
[2016-06-14] MEDS: DAKINS QUARTER STRENGTH (0.125%) 480 ML BOTTLE TOP SCH (08:12)
[2016-06-14] MEDS: HYDROGEL DRESSING 90 GM TUBE TP SCH (08:12)
[2016-06-14] MEDS: Z GUARD REMEDY 2 OZ OINT TP SCH (08:12)
[2016-06-14] MEDS: FIBERSOURCE HN 1,000 ML BOTTLE GT PRN (17:45)
[2016-06-15] VITALS: BP 93/58
[2016-06-15] MEDS: IPRATROPIUM NEB FS 0.5 MG/2.5 ML AMPUL.NEB IH SCH ×4 (01:41→20:14)
[2016-06-15] MEDS: ALBUTEROL FS 2.5 MG/0.5 ML VIAL.NEB IH SCH ×4 (01:41→20:14)
[2016-06-15 04:00] VITALS: BP 94/54
[2016-06-15] MEDS: VANCOMYCIN HCL 125 MG/2.5 ML ORAL.SUSP PO SCH ×3 (05:04→17:21)
[2016-06-15] MEDS: COLISTIMETHATE SODIUM 100 MG in IV NS 0.9% 50 ML IV SCH ×2 (05:04→17:21)
[2016-06-15 08:00] VITALS: BP 134/63
[2016-06-15] MEDS: PANTOPRAZOLE 40 MG/PACK PACK GT SCH (09:17)
[2016-06-15] MEDS: LINEZOLID 600 MG TABLET PO SCH ×2 (09:17→20:28)
[2016-06-15] MEDS: PROSOURCE / PROSTAT (PYXIS) 30 ML UDC GT SCH ×2 (09:17→17:21)
[2016-06-15] MEDS: MULTIVITAMINS,THERAPEUTIC 1 UDTAB TABLET GT SCH (09:17)
[2016-06-15] MEDS: LEVOTHYROXINE SODIUM 125 MCG TABLET PO SCH (09:17)
[2016-06-15] MEDS: FERROUS SULFATE UDC 300 MG/5 ML UDC GT SCH ×2 (09:17→17:21)
[2016-06-15] MEDS: LEVETIRACETAM SOL (5 ML) 100 MG/ML UDC GT SCH ×2 (09:17→20:28)
[2016-06-15] MEDS: ASCORBIC ACID 500 MG TABLET GT SCH (09:17)
[2016-06-15] MEDS: LACTOBACILLUS RHAMNOSUS GG 1 EACH CAP.SPRINK GT SCH ×2 (09:17→17:21)
[2016-06-15] MEDS: CHOLECALCIFEROL 1,000 UNIT TABLET (VIT D3) GT SCH (09:18)
[2016-06-15] MEDS: ACETAMINOPHEN 650 MG/20.3 ML UDC GT SCH (09:19)
[2016-06-15] MEDS: CARVEDILOL 12.5 MG TABLET GT SCH ×2 (09:19→20:26)
[2016-06-15] MEDS: AMIODARONE HCL 200 MG TABLET GT SCH (09:19)
[2016-06-15] MEDS: Z GUARD REMEDY 2 OZ OINT TP SCH (09:22)
[2016-06-15] MEDS: DAKINS QUARTER STRENGTH (0.125%) 480 ML BOTTLE TOP SCH (09:22)
[2016-06-15] MEDS: HYDROGEL DRESSING 90 GM TUBE TP SCH (09:22)
[2016-06-15] MEDS: ZINC SULFATE 220 MG CAPSULE GT SCH (09:23)
[2016-06-15] MEDS ORDERED: SUCCINYLCHOLINE CHLORIDE 20 MG/ML VIAL ONE (10:14)
[2016-06-15] MEDS ORDERED: ROCURONIUM BROMIDE 50 MG/5 ML ONE (10:14)
[2016-06-15] MEDS ORDERED: FENTANYL PF 100MCG/2ML AMPUL ONE (10:14)
[2016-06-15 12:00] VITALS: BP 106/60
[2016-06-15 16:00] VITALS: BP 94/49
[2016-06-15] MEDS: FIBERSOURCE HN 1,000 ML BOTTLE GT PRN (17:21)
[2016-06-15 20:00] VITALS: BP 90/47
[2016-06-16] VITALS: BP 96/59
[2016-06-16] MEDS: VANCOMYCIN HCL 125 MG/2.5 ML ORAL.SUSP PO SCH ×5 (01:16→23:48)
[2016-06-16] MEDS: ALBUTEROL FS 2.5 MG/0.5 ML VIAL.NEB IH SCH ×4 (01:49→19:38)
[2016-06-16] MEDS: IPRATROPIUM NEB FS 0.5 MG/2.5 ML AMPUL.NEB IH SCH ×4 (01:49→19:38)
[2016-06-16 04:00] VITALS: BP 95/56
[2016-06-16] MEDS: COLISTIMETHATE SODIUM 100 MG in IV NS 0.9% 50 ML IV SCH ×2 (04:16→17:52)
[2016-06-16 05:52] LABS: BASOPHILS % (AUTO) 0.3 % (0.0-2.0); DIFF TOTAL % 100 %; EOSINOPHILS # (AUTO) 0.4 /CMM (0.0-0.7); EOSINOPHILS % (AUTO) 3.4 % (0.0-6.0); HEMATOCRIT 29 % (39-51); HEMOGLOBIN 9.4 g/dL (13.5-17.5); LYMPHOCYTES % (AUTO) 7.8 % (20.0-44.0); MEAN CORPUSCULAR HEMOGLOBIN 27 PG (26.0-33.0); MEAN CORPUSCULAR HGB CONC 33 g/dl (31.0-36.0); MEAN CORPUSCULAR VOLUME 83 fL (80-96); MONOCYTES # (AUTO) 1.1 /CMM (0.1-1.30); MONOCYTES % (AUTO) 8.4 % (2.0-12.0); NEUTROPHILS # (AUTO) 10.1 /CMM (1.8-8.9); NEUTROPHILS % (AUTO) 80.1 % (43.0-81.0); PLATELET COUNT (AUTO) 258 /CMM (150-450); RED BLOOD CELL COUNT(AUTO) 3.46 MIL/uL (4.5-6.0); WHITE BLOOD COUNT (AUTO) 12.6 K/uL (4.3-11.0)
[2016-06-16 06:11] LABS: CALCIUM, SERUM 8.7 mg/dL (8.5-10.1); CREATININE 0.8 mg/dL (0.6-1.3); POTASSIUM 4.1 mmol/L (3.5-5.1)
[2016-06-16 08:00] VITALS: BP 90/52
[2016-06-16] MEDS: PROSOURCE / PROSTAT (PYXIS) 30 ML UDC GT SCH ×2 (08:17→17:01)
[2016-06-16] MEDS: LEVOTHYROXINE SODIUM 125 MCG TABLET PO SCH (08:17)
[2016-06-16] MEDS: ACETAMINOPHEN 650 MG/20.3 ML UDC GT SCH (08:17)
[2016-06-16] MEDS: CHOLECALCIFEROL 1,000 UNIT TABLET (VIT D3) GT SCH (08:17)
[2016-06-16] MEDS: LINEZOLID 600 MG TABLET PO SCH ×2 (08:18→21:12)
[2016-06-16] MEDS: PANTOPRAZOLE 40 MG/PACK PACK GT SCH (08:18)
[2016-06-16] MEDS: FERROUS SULFATE UDC 300 MG/5 ML UDC GT SCH ×2 (08:18→17:01)
[2016-06-16] MEDS: MULTIVITAMINS,THERAPEUTIC 1 UDTAB TABLET GT SCH (08:18)
[2016-06-16] MEDS: LACTOBACILLUS RHAMNOSUS GG 1 EACH CAP.SPRINK GT SCH ×2 (08:18→17:01)
[2016-06-16] MEDS: LEVETIRACETAM SOL (5 ML) 100 MG/ML UDC GT SCH ×2 (08:18→21:12)
[2016-06-16] MEDS: ASCORBIC ACID 500 MG TABLET GT SCH (08:18)
[2016-06-16] MEDS: ZINC SULFATE 220 MG CAPSULE GT SCH (08:18)
[2016-06-16] MEDS: DAKINS QUARTER STRENGTH (0.125%) 480 ML BOTTLE TOP SCH (08:20)
[2016-06-16] MEDS: HYDROGEL DRESSING 90 GM TUBE TP SCH (08:20)
[2016-06-16] MEDS: Z GUARD REMEDY 2 OZ OINT TP SCH (08:20)
[2016-06-16] MEDS: FIBERSOURCE HN 1,000 ML BOTTLE GT PRN (08:39)
[2016-06-16] MEDS: CARVEDILOL 12.5 MG TABLET GT SCH ×2 (09:00→21:00)
[2016-06-16] MEDS: AMIODARONE HCL 200 MG TABLET GT SCH (09:00)
[2016-06-16] MEDS: POLYVINYL ALCOHOL 15 ML BOTTLE EACHEYE PRN (11:39)
[2016-06-16 12:00] VITALS: BP 118/66
[2016-06-16] MEDS: IV NS 0.9% 250 ML IV PRN (14:20)
[2016-06-16 16:00] VITALS: BP 97/45
[2016-06-16 20:00] VITALS: BP 92/46
[2016-06-17] VITALS (7 sets, daily range): BP systolic 92–104; BP diastolic 47–65
[2016-06-17] MEDS: IPRATROPIUM NEB FS 0.5 MG/2.5 ML AMPUL.NEB IH SCH ×4 (01:53→20:02)
[2016-06-17] MEDS: ALBUTEROL FS 2.5 MG/0.5 ML VIAL.NEB IH SCH ×4 (01:53→20:02)
[2016-06-17] MEDS: COLISTIMETHATE SODIUM 100 MG in IV NS 0.9% 50 ML IV SCH ×2 (05:11→17:12)
[2016-06-17] MEDS: VANCOMYCIN HCL 125 MG/2.5 ML ORAL.SUSP PO SCH ×4 (05:12→23:45)
[2016-06-17] MEDS: FIBERSOURCE HN 1,000 ML BOTTLE GT PRN (05:12)
[2016-06-17] MEDS: PANTOPRAZOLE 40 MG/PACK PACK GT SCH (08:59)
[2016-06-17] MEDS: ZINC SULFATE 220 MG CAPSULE GT SCH (08:59)
[2016-06-17] MEDS: LEVETIRACETAM SOL (5 ML) 100 MG/ML UDC GT SCH ×2 (08:59→21:11)
[2016-06-17] MEDS: LINEZOLID 600 MG TABLET PO SCH ×2 (08:59→21:11)
[2016-06-17] MEDS: FERROUS SULFATE UDC 300 MG/5 ML UDC GT SCH ×2 (08:59→17:12)
[2016-06-17] MEDS: PROSOURCE / PROSTAT (PYXIS) 30 ML UDC GT SCH ×2 (08:59→17:12)
[2016-06-17] MEDS: LACTOBACILLUS RHAMNOSUS GG 1 EACH CAP.SPRINK GT SCH ×2 (08:59→17:12)
[2016-06-17] MEDS: CARVEDILOL 12.5 MG TABLET GT SCH ×2 (09:00→20:50)
[2016-06-17] MEDS: AMIODARONE HCL 200 MG TABLET GT SCH (09:00)
[2016-06-17] MEDS: ASCORBIC ACID 500 MG TABLET GT SCH (09:02)
[2016-06-17] MEDS: LEVOTHYROXINE SODIUM 125 MCG TABLET PO SCH (09:03)
[2016-06-17] MEDS: MULTIVITAMINS,THERAPEUTIC 1 UDTAB TABLET GT SCH (09:03)
[2016-06-17] MEDS: DAKINS QUARTER STRENGTH (0.125%) 480 ML BOTTLE TOP SCH (09:04)
[2016-06-17] MEDS: CHOLECALCIFEROL 1,000 UNIT TABLET (VIT D3) GT SCH (09:04)
[2016-06-17] MEDS: ACETAMINOPHEN 650 MG/20.3 ML UDC GT SCH (09:04)
[2016-06-17] MEDS: Z GUARD REMEDY 2 OZ OINT TP SCH (09:05)
[2016-06-17] MEDS: HYDROGEL DRESSING 90 GM TUBE TP SCH (09:05)
[2016-06-18] VITALS: BP 95/59
[2016-06-18] MEDS: IPRATROPIUM NEB FS 0.5 MG/2.5 ML AMPUL.NEB IH SCH ×4 (02:17→20:28)
[2016-06-18] MEDS: ALBUTEROL FS 2.5 MG/0.5 ML VIAL.NEB IH SCH ×4 (02:17→20:28)
[2016-06-18 04:00] VITALS: BP 95/56
[2016-06-18] MEDS: COLISTIMETHATE SODIUM 100 MG in IV NS 0.9% 50 ML IV SCH ×2 (05:11→16:14)
[2016-06-18] MEDS: VANCOMYCIN HCL 125 MG/2.5 ML ORAL.SUSP PO SCH ×4 (05:12→23:56)
[2016-06-18] MEDS: ACETAMINOPHEN 650 MG/20.3 ML UDC GT PRN (05:12)
[2016-06-18] MEDS: FIBERSOURCE HN 1,000 ML BOTTLE GT PRN ×2 (05:18→23:59)
[2016-06-18 06:52] LABS: BASOPHILS % (AUTO) 0.4 % (0.0-2.0); DIFF TOTAL % 100 %; EOSINOPHILS # (AUTO) 0.4 /CMM (0.0-0.7); HEMATOCRIT 29 % (39-51); HEMOGLOBIN 9.5 g/dL (13.5-17.5); LYMPHOCYTES % (AUTO) 10.2 % (20.0-44.0); MEAN CORPUSCULAR HEMOGLOBIN 28 PG (26.0-33.0); MEAN CORPUSCULAR HGB CONC 33 g/dl (31.0-36.0); MEAN CORPUSCULAR VOLUME 85 fL (80-96); MONOCYTES # (AUTO) 0.9 /CMM (0.1-1.30); MONOCYTES % (AUTO) 8.5 % (2.0-12.0); NEUTROPHILS # (AUTO) 7.8 /CMM (1.8-8.9); NEUTROPHILS % (AUTO) 76.9 % (43.0-81.0); PLATELET COUNT (AUTO) 244 /CMM (150-450); RED BLOOD CELL COUNT(AUTO) 3.43 MIL/uL (4.5-6.0); WHITE BLOOD COUNT (AUTO) 10.2 K/uL (4.3-11.0)
[2016-06-18 08:00] VITALS: BP 87/52
[2016-06-18] MEDS: CARVEDILOL 12.5 MG TABLET GT SCH ×2 (09:00→20:22)
[2016-06-18] MEDS: MULTIVITAMINS,THERAPEUTIC 1 UDTAB TABLET GT SCH (09:06)
[2016-06-18] MEDS: PROSOURCE / PROSTAT (PYXIS) 30 ML UDC GT SCH ×2 (09:06→16:14)
[2016-06-18] MEDS: LINEZOLID 600 MG TABLET PO SCH ×2 (09:06→20:21)
[2016-06-18] MEDS: LACTOBACILLUS RHAMNOSUS GG 1 EACH CAP.SPRINK GT SCH ×2 (09:06→16:14)
[2016-06-18] MEDS: ASCORBIC ACID 500 MG TABLET GT SCH (09:06)
[2016-06-18] MEDS: CHOLECALCIFEROL 1,000 UNIT TABLET (VIT D3) GT SCH (09:06)
[2016-06-18] MEDS: ZINC SULFATE 220 MG CAPSULE GT SCH (09:06)
[2016-06-18] MEDS: PANTOPRAZOLE 40 MG/PACK PACK GT SCH (09:06)
[2016-06-18] MEDS: FERROUS SULFATE UDC 300 MG/5 ML UDC GT SCH ×2 (09:07→16:14)
[2016-06-18] MEDS: ACETAMINOPHEN 650 MG/20.3 ML UDC GT SCH (09:07)
[2016-06-18] MEDS: AMIODARONE HCL 200 MG TABLET GT SCH (09:07)
[2016-06-18] MEDS: LEVETIRACETAM SOL (5 ML) 100 MG/ML UDC GT SCH ×2 (09:07→20:21)
[2016-06-18] MEDS: Z GUARD REMEDY 2 OZ OINT TP SCH (09:08)
[2016-06-18] MEDS: HYDROGEL DRESSING 90 GM TUBE TP SCH (09:08)
[2016-06-18] MEDS: DAKINS QUARTER STRENGTH (0.125%) 480 ML BOTTLE TOP SCH (09:09)
[2016-06-18] MEDS: LEVOTHYROXINE SODIUM 125 MCG TABLET PO SCH (09:09)
[2016-06-18 09:20] LABS: CALCIUM, SERUM 9.2 mg/dL (8.5-10.1); POTASSIUM 4.5 mmol/L (3.5-5.1)
[2016-06-18 12:00] VITALS: BP 95/49
[2016-06-18 16:00] VITALS: BP 109/63
[2016-06-18] MEDS ORDERED: IV SET PRIMARY PUMP SET 1 EA INFUS.SET MC ONE (16:14)
[2016-06-18 20:00] VITALS: BP 91/57
[2016-06-19] VITALS (8 sets, daily range): BP systolic 82–101; BP diastolic 42–57
[2016-06-19] MEDS: IPRATROPIUM NEB FS 0.5 MG/2.5 ML AMPUL.NEB IH SCH ×4 (01:30→19:10)
[2016-06-19] MEDS: ALBUTEROL FS 2.5 MG/0.5 ML VIAL.NEB IH SCH ×4 (01:30→19:09)
[2016-06-19] MEDS: COLISTIMETHATE SODIUM 100 MG in IV NS 0.9% 50 ML IV SCH ×2 (05:51→18:01)
[2016-06-19] MEDS: VANCOMYCIN HCL 125 MG/2.5 ML ORAL.SUSP PO SCH ×3 (05:51→18:00)
[2016-06-19] MEDS: LEVOTHYROXINE SODIUM 125 MCG TABLET PO SCH (08:55)
[2016-06-19] MEDS: MULTIVITAMINS,THERAPEUTIC 1 UDTAB TABLET GT SCH (08:56)
[2016-06-19] MEDS: LEVETIRACETAM SOL (5 ML) 100 MG/ML UDC GT SCH ×2 (08:56→21:19)
[2016-06-19] MEDS: PROSOURCE / PROSTAT (PYXIS) 30 ML UDC GT SCH ×2 (08:56→18:00)
[2016-06-19] MEDS: LACTOBACILLUS RHAMNOSUS GG 1 EACH CAP.SPRINK GT SCH ×2 (08:56→18:00)
[2016-06-19] MEDS: FERROUS SULFATE UDC 300 MG/5 ML UDC GT SCH ×2 (08:56→18:00)
[2016-06-19] MEDS: PANTOPRAZOLE 40 MG/PACK PACK GT SCH (08:56)
[2016-06-19] MEDS: ACETAMINOPHEN 650 MG/20.3 ML UDC GT SCH (08:57)
[2016-06-19] MEDS: ASCORBIC ACID 500 MG TABLET GT SCH (08:57)
[2016-06-19] MEDS: CHOLECALCIFEROL 1,000 UNIT TABLET (VIT D3) GT SCH (08:57)
[2016-06-19] MEDS: LINEZOLID 600 MG TABLET PO SCH ×2 (08:57→21:19)
[2016-06-19] MEDS: ZINC SULFATE 220 MG CAPSULE GT SCH (08:57)
[2016-06-19] MEDS: DAKINS QUARTER STRENGTH (0.125%) 480 ML BOTTLE TOP SCH (08:58)
[2016-06-19] MEDS: HYDROGEL DRESSING 90 GM TUBE TP SCH (08:58)
[2016-06-19] MEDS: Z GUARD REMEDY 2 OZ OINT TP SCH (08:58)
[2016-06-19] MEDS: CARVEDILOL 12.5 MG TABLET GT SCH ×2 (09:00→21:00)
[2016-06-19] MEDS: AMIODARONE HCL 200 MG TABLET GT SCH (09:00)
[2016-06-19] MEDS: FIBERSOURCE HN 1,000 ML BOTTLE GT PRN (17:07)
[2016-06-19] MEDS ORDERED: IV SET PRIMARY PUMP SET 1 EA INFUS.SET MC ONE (21:15)
[2016-06-19] MEDS ORDERED: IV NS 0.9% 500 ML IV ONE (21:15)
[2016-06-19] MEDS ORDERED: IV NS 0.9% 500 ML BAG IV ONE (21:30)
[2016-06-20] VITALS (7 sets, daily range): BP systolic 85–108; BP diastolic 46–83
[2016-06-20] MEDS: VANCOMYCIN HCL 125 MG/2.5 ML ORAL.SUSP PO SCH ×5 (00:34→23:49)
[2016-06-20] MEDS: ALBUTEROL FS 2.5 MG/0.5 ML VIAL.NEB IH SCH ×4 (01:19→19:20)
[2016-06-20] MEDS: IPRATROPIUM NEB FS 0.5 MG/2.5 ML AMPUL.NEB IH SCH ×4 (01:19→19:20)
[2016-06-20] MEDS: IV NS 0.9% 250 ML IV PRN (05:47)
[2016-06-20] MEDS ORDERED: SECONDARY IV SET 1 EA INFUS.SET MC ONE (05:52)
[2016-06-20] MEDS: COLISTIMETHATE SODIUM 100 MG in IV NS 0.9% 50 ML IV SCH ×2 (05:59→16:45)
[2016-06-20] MEDS: PROSOURCE / PROSTAT (PYXIS) 30 ML UDC GT SCH ×2 (08:56→16:44)
[2016-06-20] MEDS: MULTIVITAMINS,THERAPEUTIC 1 UDTAB TABLET GT SCH (08:57)
[2016-06-20] MEDS: LACTOBACILLUS RHAMNOSUS GG 1 EACH CAP.SPRINK GT SCH ×2 (08:57→16:44)
[2016-06-20] MEDS: LINEZOLID 600 MG TABLET PO SCH ×2 (08:57→21:49)
[2016-06-20] MEDS: ZINC SULFATE 220 MG CAPSULE GT SCH (08:57)
[2016-06-20] MEDS: PANTOPRAZOLE 40 MG/PACK PACK GT SCH (08:57)
[2016-06-20] MEDS: FERROUS SULFATE UDC 300 MG/5 ML UDC GT SCH ×2 (08:57→16:44)
[2016-06-20] MEDS: ASCORBIC ACID 500 MG TABLET GT SCH (08:57)
[2016-06-20] MEDS: LEVETIRACETAM SOL (5 ML) 100 MG/ML UDC GT SCH ×2 (08:57→21:48)
[2016-06-20] MEDS: ACETAMINOPHEN 650 MG/20.3 ML UDC GT SCH (08:57)
[2016-06-20] MEDS: CHOLECALCIFEROL 1,000 UNIT TABLET (VIT D3) GT SCH (08:59)
[2016-06-20] MEDS: Z GUARD REMEDY 2 OZ OINT TP SCH (09:00)
[2016-06-20] MEDS: DAKINS QUARTER STRENGTH (0.125%) 480 ML BOTTLE TOP SCH (09:00)
[2016-06-20] MEDS: CARVEDILOL 12.5 MG TABLET GT SCH (09:00)
[2016-06-20] MEDS: HYDROGEL DRESSING 90 GM TUBE TP SCH (09:00)
[2016-06-20] MEDS: AMIODARONE HCL 200 MG TABLET GT SCH (09:02)
[2016-06-20] MEDS: LEVOTHYROXINE SODIUM 125 MCG TABLET PO SCH (09:35)
[2016-06-20] MEDS: FIBERSOURCE HN 1,000 ML BOTTLE GT PRN (11:56)
[2016-06-20] MEDS: ENALAPRIL MALEATE (5 MG) 5 MG TABLET PO SCH (12:57)
[2016-06-20] MEDS: CARVEDILOL 12.5 MG TABLET PO SCH (21:00)
[2016-06-21] VITALS: BP 92/50
[2016-06-21] MEDS: IPRATROPIUM NEB FS 0.5 MG/2.5 ML AMPUL.NEB IH SCH ×4 (01:16→19:55)
[2016-06-21] MEDS: ALBUTEROL FS 2.5 MG/0.5 ML VIAL.NEB IH SCH ×4 (01:17→19:54)
[2016-06-21 04:00] VITALS: BP 90/54
[2016-06-21] MEDS: VANCOMYCIN HCL 125 MG/2.5 ML ORAL.SUSP PO SCH ×3 (05:22→16:44)
[2016-06-21] MEDS: IV NS 0.9% 250 ML IV PRN ×2 (05:22→21:12)
[2016-06-21] MEDS: FIBERSOURCE HN 1,000 ML BOTTLE GT PRN ×2 (05:23→21:12)
[2016-06-21] MEDS: COLISTIMETHATE SODIUM 100 MG in IV NS 0.9% 50 ML IV SCH ×2 (05:23→16:53)
[2016-06-21 07:42] LABS: CALCIUM, SERUM 9.3 mg/dL (8.5-10.1); CREATININE 1.2 mg/dL (0.6-1.3); POTASSIUM 4.5 mmol/L (3.5-5.1)
[2016-06-21] MEDS: AMIODARONE HCL 200 MG TABLET GT SCH (07:56)
[2016-06-21] MEDS: CARVEDILOL 12.5 MG TABLET PO SCH ×2 (07:57→21:00)
[2016-06-21] MEDS: ENALAPRIL MALEATE (5 MG) 5 MG TABLET PO SCH (07:57)
[2016-06-21 07:58] LABS: BASOPHILS # (AUTO) 0.1 /CMM (0.0-0.2); BASOPHILS % (AUTO) 0.5 % (0.0-2.0); DIFF TOTAL % 100 %; EOSINOPHILS # (AUTO) 0.6 /CMM (0.0-0.7); EOSINOPHILS % (AUTO) 5.7 % (0.0-6.0); HEMATOCRIT 28 % (39-51); HEMOGLOBIN 9.2 g/dL (13.5-17.5); LYMPHOCYTES % (AUTO) 8.9 % (20.0-44.0); MEAN CORPUSCULAR HEMOGLOBIN 28 PG (26.0-33.0); MEAN CORPUSCULAR HGB CONC 33 g/dl (31.0-36.0); MEAN CORPUSCULAR VOLUME 84 fL (80-96); MONOCYTES # (AUTO) 0.8 /CMM (0.1-1.30); MONOCYTES % (AUTO) 7.1 % (2.0-12.0); NEUTROPHILS # (AUTO) 8.9 /CMM (1.8-8.9); NEUTROPHILS % (AUTO) 77.8 % (43.0-81.0); PLATELET COUNT (AUTO) 243 /CMM (150-450); RED BLOOD CELL COUNT(AUTO) 3.36 MIL/uL (4.5-6.0); WHITE BLOOD COUNT (AUTO) 11.4 K/uL (4.3-11.0)
[2016-06-21 08:00] VITALS: BP 95/57
[2016-06-21] MEDS: PROSOURCE / PROSTAT (PYXIS) 30 ML UDC GT SCH ×2 (09:13→16:44)
[2016-06-21] MEDS: LACTOBACILLUS RHAMNOSUS GG 1 EACH CAP.SPRINK GT SCH ×2 (09:13→16:44)
[2016-06-21] MEDS: LEVOTHYROXINE SODIUM 125 MCG TABLET PO SCH (09:13)
[2016-06-21] MEDS: CHOLECALCIFEROL 1,000 UNIT TABLET (VIT D3) GT SCH (09:13)
[2016-06-21] MEDS: PANTOPRAZOLE 40 MG/PACK PACK GT SCH (09:13)
[2016-06-21] MEDS: FERROUS SULFATE UDC 300 MG/5 ML UDC GT SCH ×2 (09:13→16:44)
[2016-06-21] MEDS: LEVETIRACETAM SOL (5 ML) 100 MG/ML UDC GT SCH ×2 (09:13→21:15)
[2016-06-21] MEDS: MULTIVITAMINS,THERAPEUTIC 1 UDTAB TABLET GT SCH (09:13)
[2016-06-21] MEDS: ACETAMINOPHEN 650 MG/20.3 ML UDC GT SCH (09:13)
[2016-06-21] MEDS: ASCORBIC ACID 500 MG TABLET GT SCH (09:14)
[2016-06-21] MEDS: LINEZOLID 600 MG TABLET PO SCH ×2 (09:14→21:14)
[2016-06-21] MEDS: DAKINS QUARTER STRENGTH (0.125%) 480 ML BOTTLE TOP SCH (09:14)
[2016-06-21] MEDS: ZINC SULFATE 220 MG CAPSULE GT SCH (09:14)
[2016-06-21] MEDS: Z GUARD REMEDY 2 OZ OINT TP SCH (09:15)
[2016-06-21] MEDS: HYDROGEL DRESSING 90 GM TUBE TP SCH (09:15)
[2016-06-21 12:00] VITALS: BP 92/53
[2016-06-21 16:00] VITALS: BP 77/40
[2016-06-21 20:00] VITALS: BP 99/52
[2016-06-21] MEDS ORDERED: IV SET PRIMARY PUMP SET 1 EA INFUS.SET MC ONE (21:06)
[2016-06-22] VITALS (38 sets, daily range): BP systolic 82–122; BP diastolic 42–63
[2016-06-22] MEDS: VANCOMYCIN HCL 125 MG/2.5 ML ORAL.SUSP PO SCH ×4 (00:20→18:01)
[2016-06-22] MEDS: IPRATROPIUM NEB FS 0.5 MG/2.5 ML AMPUL.NEB IH SCH ×4 (00:47→20:10)
[2016-06-22] MEDS: ALBUTEROL FS 2.5 MG/0.5 ML VIAL.NEB IH SCH ×4 (00:47→20:10)
[2016-06-22] MEDS: COLISTIMETHATE SODIUM 100 MG in IV NS 0.9% 50 ML IV SCH ×2 (04:40→17:59)
[2016-06-22] MEDS: PROSOURCE / PROSTAT (PYXIS) 30 ML UDC GT SCH ×2 (08:21→17:00)
[2016-06-22] MEDS: MULTIVITAMINS,THERAPEUTIC 1 UDTAB TABLET GT SCH (08:21)
[2016-06-22] MEDS: LINEZOLID 600 MG TABLET PO SCH ×2 (08:22→21:04)
[2016-06-22] MEDS: ZINC SULFATE 220 MG CAPSULE GT SCH (08:23)
[2016-06-22] MEDS: ACETAMINOPHEN 650 MG/20.3 ML UDC GT SCH (08:23)
[2016-06-22] MEDS: CHOLECALCIFEROL 1,000 UNIT TABLET (VIT D3) GT SCH (08:23)
[2016-06-22] MEDS: CARVEDILOL 12.5 MG TABLET PO SCH ×2 (08:23→21:00)
[2016-06-22] MEDS: LEVETIRACETAM SOL (5 ML) 100 MG/ML UDC GT SCH ×2 (08:23→21:04)
[2016-06-22] MEDS: FERROUS SULFATE UDC 300 MG/5 ML UDC GT SCH ×2 (08:23→17:00)
[2016-06-22] MEDS: LACTOBACILLUS RHAMNOSUS GG 1 EACH CAP.SPRINK GT SCH ×2 (08:23→17:00)
[2016-06-22] MEDS: AMIODARONE HCL 200 MG TABLET GT SCH (08:24)
[2016-06-22] MEDS: ENALAPRIL MALEATE (5 MG) 5 MG TABLET PO SCH (08:24)
[2016-06-22] MEDS: ASCORBIC ACID 500 MG TABLET GT SCH (08:24)
[2016-06-22] MEDS: PANTOPRAZOLE 40 MG/PACK PACK GT SCH (08:24)
[2016-06-22] MEDS: LEVOTHYROXINE SODIUM 125 MCG TABLET PO SCH (08:26)
[2016-06-22] MEDS: Z GUARD REMEDY 2 OZ OINT TP SCH (08:27)
[2016-06-22] MEDS: HYDROGEL DRESSING 90 GM TUBE TP SCH (08:27)
[2016-06-22] MEDS: DAKINS QUARTER STRENGTH (0.125%) 480 ML BOTTLE TOP SCH (08:27)
[2016-06-22] MEDS ORDERED: IV NS 0.9% 500 ML IV ONE ×3 (12:16→15:30)
[2016-06-22] MEDS: FIBERSOURCE HN 1,000 ML BOTTLE GT PRN (15:01)
[2016-06-22] MEDS ORDERED: IV SET PRIMARY PUMP SET 1 EA INFUS.SET MC ONE ×2 (15:27→16:11)
[2016-06-22] MEDS ORDERED: IV NS 0.9% 1,000 ML ONE (15:27)
[2016-06-22] MEDS ORDERED: SECONDARY IV SET 1 EA INFUS.SET MC ONE ×2 (15:27→17:53)
[2016-06-22] MEDS ORDERED: IV NS 0.9% 1,000 ML BAG IV PRN (15:30)
[2016-06-22] MEDS ORDERED: NOREPINEPHRINE 8 MG in IV D5W 500 ML IV PRN (15:30)
[2016-06-22] MEDS: MICAFUNGIN SODIUM 100 MG in IV NS 0.9% 100 ML IV SCH (18:00)
[2016-06-22] MEDS: IV NS 0.9% 1,000 ML IV PRN (18:55)
[2016-06-23] VITALS (60 sets, daily range): BP systolic 80–154; BP diastolic 51–74
[2016-06-23] MEDS: VANCOMYCIN HCL 125 MG/2.5 ML ORAL.SUSP PO SCH ×4 (00:36→17:30)
[2016-06-23] MEDS ORDERED: IV NS 0.9% 0 ML ONE (01:29)
[2016-06-23] MEDS: ALBUTEROL FS 2.5 MG/0.5 ML VIAL.NEB IH SCH ×4 (01:46→20:13)
[2016-06-23] MEDS: IPRATROPIUM NEB FS 0.5 MG/2.5 ML AMPUL.NEB IH SCH ×4 (01:46→20:13)
[2016-06-23 05:06] LABS: BASOPHILS % (AUTO) 0.3 % (0.0-2.0); DIFF TOTAL % 100 %; EOSINOPHILS # (AUTO) 0.8 /CMM (0.0-0.7); EOSINOPHILS % (AUTO) 6.6 % (0.0-6.0); HEMATOCRIT 26 % (39-51); HEMOGLOBIN 8.4 g/dL (13.5-17.5); LYMPHOCYTES % (AUTO) 8.2 % (20.0-44.0); MEAN CORPUSCULAR HEMOGLOBIN 28 PG (26.0-33.0); MEAN CORPUSCULAR HGB CONC 33 g/dl (31.0-36.0); MEAN CORPUSCULAR VOLUME 84 fL (80-96); MONOCYTES # (AUTO) 0.7 /CMM (0.1-1.30); MONOCYTES % (AUTO) 5.9 % (2.0-12.0); NEUTROPHILS # (AUTO) 9.3 /CMM (1.8-8.9); PLATELET COUNT (AUTO) 242 /CMM (150-450); RED BLOOD CELL COUNT(AUTO) 3.04 MIL/uL (4.5-6.0); WHITE BLOOD COUNT (AUTO) 11.8 K/uL (4.3-11.0)
[2016-06-23 05:24] LABS: CALCIUM, SERUM 8.7 mg/dL (8.5-10.1); CREATININE 1.6 mg/dL (0.6-1.3); PHOSPHORUS 4.1 mg/dL (2.5-4.9); POTASSIUM 4.8 mmol/L (3.5-5.1)
[2016-06-23 05:48] LABS: ANISOCYTOSIS 2+
[2016-06-23] MEDS: COLISTIMETHATE SODIUM 100 MG in IV NS 0.9% 50 ML IV SCH ×2 (05:54→17:30)
[2016-06-23] MEDS: IV NS 0.9% 1,000 ML IV PRN ×3 (06:23→20:52)
[2016-06-23] MEDS: ASCORBIC ACID 500 MG TABLET GT SCH (08:42)
[2016-06-23] MEDS: CHOLECALCIFEROL 1,000 UNIT TABLET (VIT D3) GT SCH (08:42)
[2016-06-23] MEDS: LACTOBACILLUS RHAMNOSUS GG 1 EACH CAP.SPRINK GT SCH ×2 (08:42→17:30)
[2016-06-23] MEDS: ZINC SULFATE 220 MG CAPSULE GT SCH (08:42)
[2016-06-23] MEDS: PANTOPRAZOLE 40 MG/PACK PACK GT SCH (08:42)
[2016-06-23] MEDS: MULTIVITAMINS,THERAPEUTIC 1 UDTAB TABLET GT SCH (08:42)
[2016-06-23] MEDS: LINEZOLID 600 MG TABLET PO SCH ×2 (08:42→20:39)
[2016-06-23] MEDS: LEVETIRACETAM SOL (5 ML) 100 MG/ML UDC GT SCH ×2 (08:42→20:39)
[2016-06-23] MEDS: ACETAMINOPHEN 650 MG/20.3 ML UDC GT SCH (08:42)
[2016-06-23] MEDS: FERROUS SULFATE UDC 300 MG/5 ML UDC GT SCH ×2 (08:42→17:30)
[2016-06-23] MEDS: LEVOTHYROXINE SODIUM 125 MCG TABLET PO SCH (08:43)
[2016-06-23] MEDS: PROSOURCE / PROSTAT (PYXIS) 30 ML UDC GT SCH ×2 (08:43→17:31)
[2016-06-23] MEDS: AMIODARONE HCL 200 MG TABLET GT SCH (08:43)
[2016-06-23] MEDS: CARVEDILOL 12.5 MG TABLET PO SCH ×2 (08:44→20:37)
[2016-06-23] MEDS: DAKINS QUARTER STRENGTH (0.125%) 480 ML BOTTLE TOP SCH (08:45)
[2016-06-23] MEDS: ENALAPRIL MALEATE (5 MG) 5 MG TABLET PO SCH (08:45)
[2016-06-23] MEDS: Z GUARD REMEDY 2 OZ OINT TP SCH (08:46)
[2016-06-23] MEDS: HYDROGEL DRESSING 90 GM TUBE TP SCH (08:46)
[2016-06-23] MEDS ORDERED: Magnesium 1GM/D5W 100ML PREMIX 100 ML IV SCH (11:00)
[2016-06-23] MEDS ORDERED: SECONDARY IV SET 1 EA INFUS.SET MC ONE ×2 (11:04→18:10)
[2016-06-23] MEDS: FIBERSOURCE HN 1,000 ML BOTTLE GT PRN (11:23)
[2016-06-23] MEDS: MICAFUNGIN SODIUM 100 MG in IV NS 0.9% 100 ML IV SCH (18:19)
[2016-06-23] MEDS ORDERED: IV NS 0.9% 250 ML IV ONE (19:39)
[2016-06-23] MEDS ORDERED: BLOOD IV SET 1 EA INFUS.SET MC ONE (19:39)
[2016-06-24] VITALS (12 sets, daily range): BP systolic 91–110; BP diastolic 47–62
[2016-06-24] MEDS: VANCOMYCIN HCL 125 MG/2.5 ML ORAL.SUSP PO SCH ×5 (00:05→23:35)
[2016-06-24] MEDS: IPRATROPIUM NEB FS 0.5 MG/2.5 ML AMPUL.NEB IH SCH ×4 (01:32→19:49)
[2016-06-24] MEDS: ALBUTEROL FS 2.5 MG/0.5 ML VIAL.NEB IH SCH ×4 (01:32→19:49)
[2016-06-24] MEDS: IV NS 0.9% 1,000 ML IV PRN (01:49)
[2016-06-24] MEDS: COLISTIMETHATE SODIUM 100 MG in IV NS 0.9% 50 ML IV SCH ×2 (05:03→17:25)
[2016-06-24 05:52] LABS: BASOPHILS % (AUTO) 0.5 % (0.0-2.0); DIFF TOTAL % 100 %; EOSINOPHILS # (AUTO) 0.7 /CMM (0.0-0.7); EOSINOPHILS % (AUTO) 7.5 % (0.0-6.0); HEMATOCRIT 26 % (39-51); HEMOGLOBIN 8.6 g/dL (13.5-17.5); LYMPHOCYTES % (AUTO) 10.4 % (20.0-44.0); MEAN CORPUSCULAR HEMOGLOBIN 28 PG (26.0-33.0); MEAN CORPUSCULAR HGB CONC 33 g/dl (31.0-36.0); MEAN CORPUSCULAR VOLUME 85 fL (80-96); MONOCYTES # (AUTO) 0.7 /CMM (0.1-1.30); MONOCYTES % (AUTO) 7.2 % (2.0-12.0); NEUTROPHILS # (AUTO) 7.2 /CMM (1.8-8.9); NEUTROPHILS % (AUTO) 74.4 % (43.0-81.0); PLATELET COUNT (AUTO) 233 /CMM (150-450); RED BLOOD CELL COUNT(AUTO) 3.06 MIL/uL (4.5-6.0); WHITE BLOOD COUNT (AUTO) 9.7 K/uL (4.3-11.0)
[2016-06-24 06:02] LABS: ALBUMIN 1.7 g/dL (3.4-5.0); BILIRUBIN,TOTAL 0.4 mg/dL (0.2-1.0); CALCIUM, SERUM 8.4 mg/dL (8.5-10.1); CREATININE 1.8 mg/dL (0.6-1.3); PHOSPHORUS 4.1 mg/dL (2.5-4.9); POTASSIUM 4.3 mmol/L (3.5-5.1); TOTAL PROTEIN, SERUM 5.3 g/dL (6.4-8.2)
[2016-06-24] MEDS: LEVOTHYROXINE SODIUM 125 MCG TABLET PO SCH (08:33)
[2016-06-24] MEDS: CHOLECALCIFEROL 1,000 UNIT TABLET (VIT D3) GT SCH (08:33)
[2016-06-24] MEDS: MULTIVITAMINS,THERAPEUTIC 1 UDTAB TABLET GT SCH (08:33)
[2016-06-24] MEDS: LEVETIRACETAM SOL (5 ML) 100 MG/ML UDC GT SCH ×2 (08:33→20:32)
[2016-06-24] MEDS: FERROUS SULFATE UDC 300 MG/5 ML UDC GT SCH ×2 (08:33→16:35)
[2016-06-24] MEDS: ZINC SULFATE 220 MG CAPSULE GT SCH (08:33)
[2016-06-24] MEDS: LACTOBACILLUS RHAMNOSUS GG 1 EACH CAP.SPRINK GT SCH ×2 (08:33→16:35)
[2016-06-24] MEDS: PROSOURCE / PROSTAT (PYXIS) 30 ML UDC GT SCH ×2 (08:33→16:35)
[2016-06-24] MEDS: ACETAMINOPHEN 650 MG/20.3 ML UDC GT SCH (08:33)
[2016-06-24] MEDS: ASCORBIC ACID 500 MG TABLET GT SCH (08:34)
[2016-06-24] MEDS: CARVEDILOL 12.5 MG TABLET PO SCH ×2 (08:34→20:17)
[2016-06-24] MEDS: LINEZOLID 600 MG TABLET PO SCH ×2 (08:34→20:32)
[2016-06-24] MEDS: ENALAPRIL MALEATE (5 MG) 5 MG TABLET PO SCH (08:34)
[2016-06-24] MEDS: PANTOPRAZOLE 40 MG/PACK PACK GT SCH (08:34)
[2016-06-24] MEDS: AMIODARONE HCL 200 MG TABLET GT SCH (08:35)
[2016-06-24] MEDS: DAKINS QUARTER STRENGTH (0.125%) 480 ML BOTTLE TOP SCH (08:35)
[2016-06-24] MEDS: HYDROGEL DRESSING 90 GM TUBE TP SCH (08:36)
[2016-06-24] MEDS: Z GUARD REMEDY 2 OZ OINT TP SCH (08:36)
[2016-06-24] MEDS: FIBERSOURCE HN 1,000 ML BOTTLE GT PRN ×2 (10:07→23:52)
[2016-06-24] MEDS ORDERED: IV NS 0.9% 250 ML IV ONE ×2 (14:14→15:40)
[2016-06-24] MEDS ORDERED: BLOOD IV SET 1 EA INFUS.SET MC ONE (14:15)
[2016-06-24] MEDS ORDERED: IV SET PRIMARY PUMP SET 1 EA INFUS.SET MC ONE (15:40)
[2016-06-24] MEDS: MICAFUNGIN SODIUM 100 MG in IV NS 0.9% 100 ML IV SCH (17:55)
[2016-06-25] VITALS: BP 100/58
[2016-06-25] MEDS: ALBUTEROL FS 2.5 MG/0.5 ML VIAL.NEB IH SCH ×4 (01:33→19:41)
[2016-06-25] MEDS: IPRATROPIUM NEB FS 0.5 MG/2.5 ML AMPUL.NEB IH SCH ×4 (01:35→19:41)
[2016-06-25 04:00] VITALS: BP 100/58
[2016-06-25] MEDS: COLISTIMETHATE SODIUM 100 MG in IV NS 0.9% 50 ML IV SCH ×2 (05:00→17:17)
[2016-06-25] MEDS: VANCOMYCIN HCL 125 MG/2.5 ML ORAL.SUSP PO SCH ×3 (05:00→17:17)
[2016-06-25] MEDS: CARVEDILOL 12.5 MG TABLET PO SCH ×2 (07:58→20:35)
[2016-06-25] MEDS: AMIODARONE HCL 200 MG TABLET GT SCH (07:58)
[2016-06-25] MEDS: ENALAPRIL MALEATE (5 MG) 5 MG TABLET PO SCH (07:59)
[2016-06-25 08:00] VITALS: BP_SYST 100; BP_DIAS 50; BP_DIAS 55
[2016-06-25] MEDS: FERROUS SULFATE UDC 300 MG/5 ML UDC GT SCH ×2 (09:07→17:17)
[2016-06-25] MEDS: LEVETIRACETAM SOL (5 ML) 100 MG/ML UDC GT SCH ×2 (09:07→20:34)
[2016-06-25] MEDS: ACETAMINOPHEN 650 MG/20.3 ML UDC GT SCH (09:07)
[2016-06-25] MEDS: PANTOPRAZOLE 40 MG/PACK PACK GT SCH (09:08)
[2016-06-25] MEDS: PROSOURCE / PROSTAT (PYXIS) 30 ML UDC GT SCH ×2 (09:08→17:17)
[2016-06-25] MEDS: LEVOTHYROXINE SODIUM 125 MCG TABLET PO SCH (09:08)
[2016-06-25] MEDS: ZINC SULFATE 220 MG CAPSULE GT SCH (09:08)
[2016-06-25] MEDS: LINEZOLID 600 MG TABLET PO SCH ×2 (09:08→20:34)
[2016-06-25] MEDS: ASCORBIC ACID 500 MG TABLET GT SCH (09:08)
[2016-06-25] MEDS: CHOLECALCIFEROL 1,000 UNIT TABLET (VIT D3) GT SCH (09:08)
[2016-06-25] MEDS: MULTIVITAMINS,THERAPEUTIC 1 UDTAB TABLET GT SCH (09:08)
[2016-06-25] MEDS: HYDROGEL DRESSING 90 GM TUBE TP SCH (09:09)
[2016-06-25] MEDS: LACTOBACILLUS RHAMNOSUS GG 1 EACH CAP.SPRINK GT SCH ×2 (09:09→17:17)
[2016-06-25] MEDS: DAKINS QUARTER STRENGTH (0.125%) 480 ML BOTTLE TOP SCH (09:09)
[2016-06-25] MEDS: Z GUARD REMEDY 2 OZ OINT TP SCH (09:10)
[2016-06-25 12:00] VITALS: BP 93/52
[2016-06-25 16:00] VITALS: BP 92/54
[2016-06-25] MEDS: MICAFUNGIN SODIUM 100 MG in IV NS 0.9% 100 ML IV SCH (17:18)
[2016-06-25 20:00] VITALS: BP 102/56
[2016-06-25] MEDS: FIBERSOURCE HN 1,000 ML BOTTLE GT PRN (20:37)
[2016-06-26] VITALS: BP 103/61
[2016-06-26] MEDS: VANCOMYCIN HCL 125 MG/2.5 ML ORAL.SUSP PO SCH ×5 (00:57→23:46)
[2016-06-26] MEDS: IPRATROPIUM NEB FS 0.5 MG/2.5 ML AMPUL.NEB IH SCH ×4 (01:30→19:20)
[2016-06-26] MEDS: ALBUTEROL FS 2.5 MG/0.5 ML VIAL.NEB IH SCH ×4 (01:30→19:20)
[2016-06-26 04:00] VITALS: BP 100/58
[2016-06-26] MEDS: COLISTIMETHATE SODIUM 100 MG in IV NS 0.9% 50 ML IV SCH ×2 (04:18→17:03)
[2016-06-26 06:44] LABS: BASOPHILS % (AUTO) 0.4 % (0.0-2.0); DIFF TOTAL % 100 %; EOSINOPHILS # (AUTO) 0.8 /CMM (0.0-0.7); EOSINOPHILS % (AUTO) 7.5 % (0.0-6.0); HEMATOCRIT 31 % (39-51); HEMOGLOBIN 10.3 g/dL (13.5-17.5); LYMPHOCYTES % (AUTO) 9.6 % (20.0-44.0); MEAN CORPUSCULAR HEMOGLOBIN 28 PG (26.0-33.0); MEAN CORPUSCULAR HGB CONC 33 g/dl (31.0-36.0); MEAN CORPUSCULAR VOLUME 86 fL (80-96); MONOCYTES # (AUTO) 0.7 /CMM (0.1-1.30); MONOCYTES % (AUTO) 7.4 % (2.0-12.0); NEUTROPHILS # (AUTO) 7.6 /CMM (1.8-8.9); NEUTROPHILS % (AUTO) 75.1 % (43.0-81.0); PLATELET COUNT (AUTO) 227 /CMM (150-450); RED BLOOD CELL COUNT(AUTO) 3.66 MIL/uL (4.5-6.0); WHITE BLOOD COUNT (AUTO) 10.1 K/uL (4.3-11.0)
[2016-06-26 08:00] VITALS: BP_SYST 76; BP_SYST 96; BP_DIAS 43; BP_DIAS 53
[2016-06-26] MEDS: AMIODARONE HCL 200 MG TABLET GT SCH (08:42)
[2016-06-26] MEDS: CARVEDILOL 12.5 MG TABLET PO SCH ×2 (08:43→20:29)
[2016-06-26] MEDS: ENALAPRIL MALEATE (5 MG) 5 MG TABLET PO SCH (08:43)
[2016-06-26] MEDS: LEVETIRACETAM SOL (5 ML) 100 MG/ML UDC GT SCH ×2 (09:36→20:28)
[2016-06-26] MEDS: MULTIVITAMINS,THERAPEUTIC 1 UDTAB TABLET GT SCH (09:36)
[2016-06-26] MEDS: CHOLECALCIFEROL 1,000 UNIT TABLET (VIT D3) GT SCH (09:36)
[2016-06-26] MEDS: ZINC SULFATE 220 MG CAPSULE GT SCH (09:36)
[2016-06-26] MEDS: PROSOURCE / PROSTAT (PYXIS) 30 ML UDC GT SCH ×2 (09:36→17:03)
[2016-06-26] MEDS: LEVOTHYROXINE SODIUM 125 MCG TABLET PO SCH (09:36)
[2016-06-26] MEDS: PANTOPRAZOLE 40 MG/PACK PACK GT SCH (09:36)
[2016-06-26] MEDS: FERROUS SULFATE UDC 300 MG/5 ML UDC GT SCH ×2 (09:36→17:03)
[2016-06-26] MEDS: ASCORBIC ACID 500 MG TABLET GT SCH (09:36)
[2016-06-26] MEDS: ACETAMINOPHEN 650 MG/20.3 ML UDC GT SCH (09:36)
[2016-06-26] MEDS: LACTOBACILLUS RHAMNOSUS GG 1 EACH CAP.SPRINK GT SCH ×2 (09:36→17:03)
[2016-06-26] MEDS: LINEZOLID 600 MG TABLET PO SCH ×2 (09:36→20:28)
[2016-06-26] MEDS: HYDROGEL DRESSING 90 GM TUBE TP SCH (09:37)
[2016-06-26] MEDS: Z GUARD REMEDY 2 OZ OINT TP SCH (09:37)
[2016-06-26] MEDS: DAKINS QUARTER STRENGTH (0.125%) 480 ML BOTTLE TOP SCH (09:38)
[2016-06-26 12:00] VITALS: BP 90/46
[2016-06-26 16:00] VITALS: BP 86/54
[2016-06-26] MEDS ORDERED: LIDOCAINE 1%-EPI 1:100,000 20 ML VIAL TP ONE (16:30)
[2016-06-26] MEDS ORDERED: SILVER NITRATE APPLICATOR 1 EA BOX TP ONE ×2 (16:30)
[2016-06-26] MEDS: MICAFUNGIN SODIUM 100 MG in IV NS 0.9% 100 ML IV SCH (17:03)
[2016-06-26 18:52] LABS: CALCIUM, SERUM 9.5 mg/dL (8.5-10.1); CREATININE 2.5 mg/dL (0.6-1.3); POTASSIUM 3.9 mmol/L (3.5-5.1)
[2016-06-26 20:00] VITALS: BP 93/53
[2016-06-26] MEDS: FIBERSOURCE HN 1,000 ML BOTTLE GT PRN (20:39)
[2016-06-26] MEDS ORDERED: IV D5W 1,000 ML IV ONE ×2 (22:12→22:30)
[2016-06-26] MEDS ORDERED: IV SET PRIMARY PUMP SET 1 EA INFUS.SET MC ONE (22:13)
[2016-06-26] MEDS ORDERED: IV D5W 100 ML IV ONE (22:30)
[2016-06-27] VITALS: BP 96/54
[2016-06-27] MEDS: ALBUTEROL FS 2.5 MG/0.5 ML VIAL.NEB IH SCH ×2 (01:30→07:16)
[2016-06-27] MEDS: IPRATROPIUM NEB FS 0.5 MG/2.5 ML AMPUL.NEB IH SCH ×2 (01:30→07:16)
[2016-06-27 04:00] VITALS: BP 98/57
[2016-06-27] MEDS: VANCOMYCIN HCL 125 MG/2.5 ML ORAL.SUSP PO SCH (05:16)
[2016-06-27] MEDS: COLISTIMETHATE SODIUM 100 MG in IV NS 0.9% 50 ML IV SCH (05:16)
[2016-06-27 07:24] LABS: CALCIUM, SERUM 9.3 mg/dL (8.5-10.1); CREATININE 2.5 mg/dL (0.6-1.3); POTASSIUM 4.1 mmol/L (3.5-5.1)
[2016-06-27 08:00] VITALS: BP 101/58
[2016-06-27] MEDS: MULTIVITAMINS,THERAPEUTIC 1 UDTAB TABLET GT SCH (08:49)
[2016-06-27] MEDS: LEVOTHYROXINE SODIUM 125 MCG TABLET PO SCH (08:49)
[2016-06-27] MEDS: ASCORBIC ACID 500 MG TABLET GT SCH (08:49)
[2016-06-27] MEDS: ZINC SULFATE 220 MG CAPSULE GT SCH (08:49)
[2016-06-27] MEDS: LINEZOLID 600 MG TABLET PO SCH (08:49)
[2016-06-27 08:50] VITALS: BP 101/58
[2016-06-27] MEDS: LEVETIRACETAM SOL (5 ML) 100 MG/ML UDC GT SCH (08:50)
[2016-06-27] MEDS: AMIODARONE HCL 200 MG TABLET GT SCH (08:50)
[2016-06-27] MEDS: PANTOPRAZOLE 40 MG/PACK PACK GT SCH (08:50)
[2016-06-27] MEDS: LACTOBACILLUS RHAMNOSUS GG 1 EACH CAP.SPRINK GT SCH (08:50)
[2016-06-27] MEDS: ACETAMINOPHEN 650 MG/20.3 ML UDC GT SCH (08:50)
[2016-06-27] MEDS: FERROUS SULFATE UDC 300 MG/5 ML UDC GT SCH (08:50)
[2016-06-27] MEDS: CARVEDILOL 12.5 MG TABLET PO SCH (08:50)
[2016-06-27] MEDS: CHOLECALCIFEROL 1,000 UNIT TABLET (VIT D3) GT SCH (08:51)
[2016-06-27] MEDS: HYDROGEL DRESSING 90 GM TUBE TP SCH (09:32)
[2016-06-27] MEDS: DAKINS QUARTER STRENGTH (0.125%) 480 ML BOTTLE TOP SCH (09:32)
[2016-06-27] MEDS: PROSOURCE / PROSTAT (PYXIS) 30 ML UDC GT SCH (09:32)
[2016-06-27] MEDS: Z GUARD REMEDY 2 OZ OINT TP SCH (09:32)
== END 2016-06-27 12:55 | disposition short-term general hospital (02) | DRG 853 ==
LOC: ER 07:15 → TELE-TD 11:54 → TELE1 06-11 08:58 → ICU 06-22 14:40 → TELE-TD 06-23 17:48 → TELE1 06-25 09:57
PROVIDERS: ADMIT Internal Medicine Rheumatology; ATTEND Internal Medicine Rheumatology
PROC: 05H533Z Insertion of Infusion Device into Right Subclavian Vein, Percutaneous Approach (ICD-10-PCS; principal; 2016-06-02)
PROC: 5A1955Z Respiratory Ventilation, Greater than 96 Consecutive Hours (ICD-10-PCS; principal; 2016-06-02)
PROC: 0KBN0ZZ Excision of Right Hip Muscle, Open Approach (ICD-10-PCS; 2016-06-07)
PROC: 0H98XZZ Drainage of Buttock Skin, External Approach (ICD-10-PCS; 2016-06-07)
PROC: 0KBP0ZZ Excision of Left Hip Muscle, Open Approach (ICD-10-PCS; 2016-06-07)
PROC: 0W9930Z Drainage of Right Pleural Cavity with Drainage Device, Percutaneous Approach (ICD-10-PCS; 2016-06-09)
PROC: 30233N1 Transfusion of Nonautologous Red Blood Cells into Peripheral Vein, Percutaneous Approach (ICD-10-PCS; 2016-06-24)
PROC: 0QB10ZZ Excision of Sacrum, Open Approach (ICD-10-PCS; 2016-06-26)
DX: A41.9 Sepsis, unspecified organism (principal); J18.9 Pneumonia, unspecified organism; G93.40 Encephalopathy, unspecified; J96.21 Acute and chronic respiratory failure with hypoxia; R53.2 Functional quadriplegia; L89.154 Pressure ulcer of sacral region, stage 4; Z99.11 Dependence on respirator [ventilator] status; J98.11 Atelectasis; J90 Pleural effusion, not elsewhere classified; A04.7 Enterocolitis due to Clostridium difficile; E87.1 Hypo-osmolality and hyponatremia; L97.419 Non-pressure chronic ulcer of right heel and midfoot with unspecified severity; L97.429 Non-pressure chronic ulcer of left heel and midfoot with unspecified severity; M86.8X8 Other osteomyelitis, other site; N39.0 Urinary tract infection, site not specified; E11.9 Type 2 diabetes mellitus without complications; E03.9 Hypothyroidism, unspecified; R13.10 Dysphagia, unspecified; Z86.73 Personal history of transient ischemic attack (TIA), and cerebral infarction without residual deficits; E87.6 Hypokalemia; Z93.0 Tracheostomy status; Z93.1 Gastrostomy status; N19 Unspecified kidney failure; D64.9 Anemia, unspecified; E11.69 Type 2 diabetes mellitus with other specified complication; E83.51 Hypocalcemia; E86.1 Hypovolemia; E88.09 Other disorders of plasma-protein metabolism, not elsewhere classified; I08.0 Rheumatic disorders of both mitral and aortic valves; I10 Essential (primary) hypertension; I25.10 Atherosclerotic heart disease of native coronary artery without angina pectoris; I48.91 Unspecified atrial fibrillation; L89.609 Pressure ulcer of unspecified heel, unspecified stage; Z16.24 Resistance to multiple antibiotics; Z68.30 Body mass index [BMI] 30.0-30.9, adult
CPT/HCPCS: 31720; 36415; 36569; 36600; 71010-TC; 71250-TC; 76942-TC; 80048-TC; 80053-TC; 80061-TC; 80076-TC; 80202-TC; 81000-TC; 82272-TC; 82306; 82728-TC; 82746; 82962-TC; 83540-TC; 83605-TC; 83735-TC; 83880; 84100-TC; 84439-TC; 84443-TC; 84484-TC; 84550-TC; 85025-TC; 85045-TC; 85610-TC; 85730-TC; 86850-TC; 86901; 86921-TC; 87040-TC; 87070-TC; 87075-TC; 87081-TC; 87086-TC; 87102-TC; 87186-TC; 87400; 88305-TC; 88312-TC; 89051-TC; 94002-TC; 94003-TC; 94760-TC; 99082-TC; A4216; A4217; A4606; A4623; A6248; A6253; A6402; A6403; A6407; A7526; J0330; J0770; J1170; J1953; J1956; J2248; J2543; J3010; J3370; J3475; J3480; J3490; J7030; J7040; J7050; J7060; J7070; P9016-BL; P9047; Q9967; Z7610

== ENCOUNTER 2016-09-22 20:52 | Inpatient (IN) | payer BC, MEDICAID ==
[~2016-09-22] VITALS: Ht 165.1 cm; Wt 72.1 kg
[~2016-09-22 20:52] MED LIST changes: +ACET-2605 GT; -ACET160S3 GT; +ACET650S26 GT; -ALBU1.257 IH; +ALBU2.5V13 IH; +AMIO200T2 GT; +ASCO500S2 GT; -BISA10SU8 RC; +CARV12.52 GT; -CHLO15MO2 MM; -DEXT1CAP3 GT; -EPOE40003 SQ; +FERR220S2 GT; +LACT-209 GT; +LEVE100S GT; +LEVO125T8 GT; -LEVO175T7 GT; -MAGN400O6 GT; -METO25TA20 GT; -NA P133E RC; -NUT.237L67 GT; +PANT40SU2 GT; +RIVA10TA GT; +ZINC220C8 GT
[2016-09-22] MEDS ORDERED: IV NS 0.9% 1,000 ML BAG IV ONE ×2 (21:00→22:30)
[2016-09-22] MEDS ORDERED: ACETAMINOPHEN 650 MG/SUPP.RECT RC ONE ×2 (21:00→21:14)
--- NOTE | 2016-09-22 21:05 | NUR ---
PT BASLINE IS NORMAL PER EMS, PT IS A TRACH TO VENT PT, PT WAS SENT HERE FROM [facility] FOR A FEVER OF 102 PER EMT, PT ON MONITOR, IV PLACED LABS DRAWN, RT IN ROOM, PT HAS A G TUBE, HARTMANN, PT HAS 2 WOUND ON HIS SACRAL AREA AND HAS BLACK STOOL. MD MADE AWARE WILL CONTINUE TO MONITOR.
[2016-09-22] MEDS ORDERED: IV NS 0.9% 1,000 ML ONE ×2 (21:14→22:35)
[2016-09-22] MEDS ORDERED: IV SET PRIMARY 1 EA INFUS.SET MC ONE ×3 (21:14→22:34)
[2016-09-22 21:20] LABS: BASOPHILS # (AUTO) 0.1 /CMM (0.0-0.2); BASOPHILS % (AUTO) 0.5 % (0.0-2.0); EOSINOPHILS % (AUTO) 0.1 % (0.0-6.0); HEMATOCRIT 32 % (39-51); HEMOGLOBIN 11.2 g/dL (13.5-17.5); LYMPHOCYTES # (AUTO) 1.3 /CMM (0.8-4.8); LYMPHOCYTES % (AUTO) 7.7 % (20.0-44.0); MEAN CORPUSCULAR HEMOGLOBIN 33 PG (26.0-33.0); MEAN CORPUSCULAR HGB CONC 35 g/dl (31.0-36.0); MEAN CORPUSCULAR VOLUME 95 fL (80-96); MONOCYTES % (AUTO) 5.7 % (2.0-12.0); NEUTROPHILS # (AUTO) 14.4 /CMM (1.8-8.9); PLATELET COUNT (AUTO) 207 /CMM (150-450); RDW COEFFICIENT OF VARIATION 15.8 (11.5-15.0); RED BLOOD CELL COUNT(AUTO) 3.36 MIL/uL (4.5-6.0); WHITE BLOOD COUNT (AUTO) 16.8 K/uL (4.3-11.0)
[2016-09-22 21:37] LABS: INR 1.17 (0.87-1.13); PROTHROMBIN TIME 12.3 SECS (9.5-12.7)
[2016-09-22 21:38] LABS: ALBUMIN 2.5 g/dL (3.4-5.0); BILIRUBIN,DIRECT 0.1 mg/dL (0.0-0.2); BILIRUBIN,TOTAL 0.4 mg/dL (0.2-1.0); CALCIUM, SERUM 8.5 mg/dL (8.5-10.1); CREATININE 2.4 mg/dL (0.6-1.3); TOTAL PROTEIN, SERUM 6.6 g/dL (6.4-8.2)
[2016-09-22 21:40] LABS: TROPONIN I 0.188 ng/mL (0.00-0.056)
[2016-09-22] MEDS ORDERED: PANTOPRAZOLE 40 MG VIAL ONE (21:55)
[2016-09-22] MEDS ORDERED: PANTOPRAZOLE 40 MG VIAL IV ONE (22:00)
[2016-09-22] MEDS ORDERED: IV LR 1000 ML 1,000 ML ONE (22:24)
[2016-09-22] MEDS ORDERED: IV LR 1000 ML 1,000 ML IV ONE (22:30)
[2016-09-22] MEDS ORDERED: PIPERACILLIN /TAZOBACTAM 3.375 G in IV D5W 50 ML IV ONE (22:30)
[2016-09-22] MEDS ORDERED: PIPERACILLIN /TAZOBACTAM 3.375 G VIAL IV ONE (22:35)
[2016-09-22 22:44] LABS: APPEARANCE,URINE SL CLOUDY (CLEAR); BILIRUBIN,URINE NEGATIVE (NEGATIVE); BLOOD, URINE NEGATIVE Ery/uL (NEGATIVE); COLOR,URINE YELLOW (YELLOW); KETONES,URINE NEGATIVE (NEGATIVE); LEUKOCYTE ESTERASE ,URINE TRACE (NEGATIVE); NITRITE, URINE NEGATIVE (NEGATIVE); PROTEIN,URINE 1+ mg/dl (NEGATIVE); UGLUCOSE NEGATIVE (NEGATIVE); UROBILINOGEN,URINE 0.2 EU/dL (0.2)
--- NOTE | 2016-09-22 22:47 | NUR ---
PT VSS, PT IN NO APPARENT DISTRESS, MD MADE AWARE WILL CONTINUE TO MONITOR.
[2016-09-22 22:51] LABS: RBC,URINE 0-2 /HPF (0-2)
[2016-09-22 22:52] LABS: BACTERIA,URINE None seen /HPF (None Seen); SQUAMOUS EPITHELIAL CELL,UR Few /HPF (None Seen); URINE AMORPHOUS URATE Few /HPF (None Seen); WBC,URINE 0-2 /HPF (0-3); YEAST,URINE Many /HPF (None Seen)
--- NOTE | 2016-09-22 23:03 | NUR ---
CALLED, TRANSFERRED CALL TO DR. DEVRIES
--- NOTE | 2016-09-22 23:20 | NUR ---
TELE-1/SCREW SUPERVISOR RECEIVED PT ACCOMPANIED BY ER STAFF. TRANSFERRED TO BED 115-1. ON VENT AC 10 TV 500 FIO2 35% PEEP 5 SHILEY 8XLT. NSR ON TELE. LEFT WRIST #18 IV PATENT. HARTMANN CATH DRAINING CLOUDY YELLOW URINE. ADMISSION ASSESSMENT DATA GATHERED. SKIN ASSESSMENT COMPLETE. WOUNDS DRESSED, PICS PLACED IN CHART. BED BATH GIVEN. LINENS CHANGED. VSS AFEBRILE. NO SS OF PAIN SOB OR DISTRESS. WILL CONTINUE TO MONITOR.
[2016-09-22 23:25] VITALS: BP 105/63
[2016-09-22] MEDS ORDERED: IV SET PRIMARY PUMP SET 1 EA INFUS.SET MC ONE (23:46)
[2016-09-23] VITALS: BP 110/67
[2016-09-23] MEDS ORDERED: IV 1/2NS 1000 ML 1,000 ML IV ONE (00:06)
[2016-09-23] MEDS ORDERED: IV SET PRIMARY PUMP SET 1 EA INFUS.SET MC ONE (00:06)
[2016-09-23] MEDS: IV 1/2NS 1000 ML 1,000 ML IV PRN ×2 (00:22→21:23)
--- NOTE | 2016-09-23 00:29 | NUR ---
TELE-1/MULTIMEDIA PROGRAMMER CHARGE NURSE JACKLYN SPEAKING WITH PHARMACY INSPECTING MACHINE ADJUSTER FOR VANCO ORDER.
[2016-09-23] MEDS ORDERED: IV NS 0.9% 250 ML IV ONE (00:38)
[2016-09-23] MEDS ORDERED: VANCOMYCIN 1 GM VIAL ONE (00:38)
[2016-09-23] MEDS ORDERED: SECONDARY IV SET 1 EA INFUS.SET MC ONE ×2 (00:40→08:56)
--- NOTE | 2016-09-23 01:02 | NUR ---
MED NOTE: ACROBATIC DANCER SPOKE WITH GAIL INNER TUBE TUBER MACHINE OPERATOR PHARMACIST 1GM ESTELAO ORDERED. ADMINISTERED BY JACKLYN OSHEA UNDER UNVERIFIED DOSE.
[2016-09-23 04:00] VITALS: BP 91/57
--- NOTE | 2016-09-23 07:30 | NUR ---
RN INITIAL NOTE PT OBTUNDED, REFLEX MOVEMENT TO LIGHT PAIN, EXTREMITIES ARE RIGID, ON MECH VENT, WITH SETTINGS ORDERED, NO SOB NO DISTRESS NOTED, SATURATION 99%, ON TELE MONITOR, SR 87 BMP, PT HAS A R CW DRAIN TUBE CLAMPED, SITE DRESSING C/D/I, G TUBE IN PLACE, CLAMPED, FLUSHED, BOWEL SOUNDS PRESENT, PT HAD BLACK TARRY STOOL ON PREVIOUS SHIFT, PT INCONTINENT, F/C IN PLACE DRAINING DARK YELLOW URINE, IV SITES IN PLACE, PATENT, DRESSING C/D/I, NO S/S OF INFILTRATION OR INFLAMMATION, IVF ORDERED, PT FEBRILE, T=100.1 F,COOLING MEASURES IMPLEMENTED, LABS WNL EXCEPT FOR NA, BUN, H/H. WBC 12.7, SKIN CARE DONE ORDERED, TURNED AND REPOSITIONED Q2H, HEELS IN BOOTS, ELEVATED, KEPT CLEAN AND DRY, TEACHING PROVIDED TO FAMILY MEMBER, VERBALIZED UNDERSTANDING. SAFETY MEASURES OBSERVED AT ALL TIMES, CALL LIGHT WITHIN REACH, BED IN LOW AND LOCKED POSITION. HOB AT 45%. PT NPO AT TIS TIME. WILL CONTINUE TO MONITOR.
[2016-09-23 07:31] LABS: HEMATOCRIT 28 % (39-51); HEMOGLOBIN 9.5 g/dL (13.5-17.5); LYMPHOCYTES # (AUTO) 0.7 /CMM (0.8-4.8); LYMPHOCYTES % (AUTO) 5.6 % (20.0-44.0); MEAN CORPUSCULAR HEMOGLOBIN 32 PG (26.0-33.0); MEAN CORPUSCULAR HGB CONC 33 g/dl (31.0-36.0); MEAN CORPUSCULAR VOLUME 96 fL (80-96); MONOCYTES # (AUTO) 0.7 /CMM (0.1-1.30); MONOCYTES % (AUTO) 5.8 % (2.0-12.0); NEUTROPHILS # (AUTO) 11.3 /CMM (1.8-8.9); NEUTROPHILS % (AUTO) 88.6 % (43.0-81.0); PLATELET COUNT (AUTO) 169 /CMM (150-450); RED BLOOD CELL COUNT(AUTO) 2.95 MIL/uL (4.5-6.0); WHITE BLOOD COUNT (AUTO) 12.7 K/uL (4.3-11.0)
[2016-09-23] MEDS ORDERED: FEE PK DOSING 1 MIN EA MC ONE (07:37)
[2016-09-23] MEDS ORDERED: LEVO500T15 GT (07:41)
[2016-09-23] MEDS ORDERED: NA P133E RC (07:41)
[2016-09-23] MEDS ORDERED: DILT30TA14 GT (07:41)
[2016-09-23] MEDS ORDERED: NUTR100037 GT (07:41)
[2016-09-23] MEDS ORDERED: BISA10SU8 RC (07:41)
[2016-09-23] MEDS ORDERED: LEVO150T8 GT (07:41)
[2016-09-23] MEDS ORDERED: METR500T GT (07:41)
[2016-09-23] MEDS ORDERED: FURO40TA5 GT (07:41)
[2016-09-23] MEDS ORDERED: FERR300L GT (07:41)
[2016-09-23] MEDS ORDERED: LINE600I2 IV (07:41)
[2016-09-23] MEDS ORDERED: HEPA10009 SQ (07:41)
[2016-09-23] MEDS ORDERED: MIDO5TAB GT (07:42)
[2016-09-23] MEDS ORDERED: LANS30CA10 GT (07:42)
[2016-09-23] MEDS ORDERED: MAGN400O6 GT (07:42)
[2016-09-23] MEDS ORDERED: ACID1TAB12 GT (07:42)
[2016-09-23 08:00] VITALS: BP 91/56
[2016-09-23 08:05] LABS: CALCIUM, SERUM 8.3 mg/dL (8.5-10.1); CREATININE 1.9 mg/dL (0.6-1.3); POTASSIUM 3.8 mmol/L (3.5-5.1)
[2016-09-23] MEDS ORDERED: ACETAMINOPHEN 650 MG/20.3 ML UDC GT PRN (08:30)
[2016-09-23] MEDS: PIPERACILLIN /TAZOBACTAM 2.25 G in IV D5W 50 ML IV SCH ×3 (08:58→17:23)
[2016-09-23 12:00] VITALS: BP 96/57
[2016-09-23 16:00] VITALS: BP 98/53
[2016-09-23] MEDS ORDERED: MAGNESIUM HYDROXIDE 30 ML UDC GT PRN (19:00)
[2016-09-23] MEDS ORDERED: IPRATROPIUM NEB FS 0.5 MG/2.5 ML AMPUL.NEB IH PRN (19:00)
[2016-09-23] MEDS ORDERED: ALBUTEROL FS 2.5 MG/0.5 ML VIAL.NEB IH PRN (19:00)
[2016-09-23] MEDS ORDERED: NA PHOS,M-B/NA PHOS,DI-BA 1 EA ENEMA RC PRN (19:00)
[2016-09-23] MEDS ORDERED: DILTIAZEM HCL 30 MG TABLET GT PRN (19:00)
[2016-09-23] MEDS ORDERED: BISACODYL SUPP (10 MG) 10 MG/SUPP.RECT SUPP.RECT RC PRN (19:00)
[2016-09-23] MEDS: ALBUTEROL FS 2.5 MG/0.5 ML VIAL.NEB IH SCH (19:51)
[2016-09-23] MEDS: IPRATROPIUM NEB FS 0.5 MG/2.5 ML AMPUL.NEB IH SCH (19:52)
[2016-09-23 20:00] VITALS: BP 141/71
[2016-09-23] MEDS: HEPARIN SODIUM, PORCINE 5000 UNITS/1 ML VIAL SQ SCH (21:21)
[2016-09-23] MEDS: LEVETIRACETAM SOL (5 ML) 100 MG/ML UDC GT SCH (21:22)
[2016-09-23] MEDS: RENAL NOVASOURCE 1,000 ML BOTTLE GT PRN (21:22)
[2016-09-23] MEDS: METRONIDAZOLE 500 MG TABLET GT SCH (21:22)
[2016-09-23] MEDS ORDERED: VANCOMYCIN 0.75 GM in IV D5W 250 ML IV SCH (23:00)
--- NOTE | 2016-09-23 23:10 | NUR ---
TELE-1/CAFETERIA COUNTER ATTENDANT DR. TOSCANO AT BEDSIDE TO EVAL PT. WILL CONTINUE TO MONITOR.
[2016-09-24] VITALS (7 sets, daily range): BP systolic 87–137; BP diastolic 52–77
[2016-09-24] MEDS: PIPERACILLIN /TAZOBACTAM 2.25 G in IV D5W 50 ML IV SCH ×5 (00:56→23:20)
[2016-09-24] MEDS: IPRATROPIUM NEB FS 0.5 MG/2.5 ML AMPUL.NEB IH SCH ×4 (01:04→19:32)
[2016-09-24] MEDS: ALBUTEROL FS 2.5 MG/0.5 ML VIAL.NEB IH SCH ×4 (01:04→19:32)
[2016-09-24] MEDS: METRONIDAZOLE 500 MG TABLET GT SCH ×3 (05:12→21:07)
--- NOTE | 2016-09-24 07:20 | NUR ---
RN INITIAL NOTES: Rec'd pt on bed, not on any distress, obtunded. Pt on mech vent via trach (Shiley 8 XLT) w/ ff settings: AC 10, TV 500, FiO2 35%, PEEP 5, saturating at 100%. Pt on telemonitor, SR w/ HR 83 bpm. On cont TF Novasource at 40 cc/hr via PEG patent & intact, no residual noted upon checking. Pt has L wrist G 18 PL patent & intact w/ 1/2 NS at 50 cc/hr infusing well. Has L AC G 18, SL, flushed, C/D/I, w/ no signs of infection/ infiltration noted. Has patent & intact FC draining to adequate urine output. Needs attended. Provided comfort & safety measures. Call light placed w/in reach. Bed kept low & in locked position. Will continue to monitor.
[2016-09-24 07:50] LABS: BASOPHILS % (AUTO) 0.1 % (0.0-2.0); EOSINOPHILS % (AUTO) 0.1 % (0.0-6.0); HEMATOCRIT 27 % (39-51); LYMPHOCYTES # (AUTO) 0.7 /CMM (0.8-4.8); LYMPHOCYTES % (AUTO) 6.1 % (20.0-44.0); MEAN CORPUSCULAR HEMOGLOBIN 32 PG (26.0-33.0); MEAN CORPUSCULAR HGB CONC 33 g/dl (31.0-36.0); MEAN CORPUSCULAR VOLUME 96 fL (80-96); MONOCYTES # (AUTO) 0.8 /CMM (0.1-1.30); MONOCYTES % (AUTO) 7.3 % (2.0-12.0); NEUTROPHILS # (AUTO) 9.9 /CMM (1.8-8.9); NEUTROPHILS % (AUTO) 86.4 % (43.0-81.0); PLATELET COUNT (AUTO) 145 /CMM (150-450); RED BLOOD CELL COUNT(AUTO) 2.82 MIL/uL (4.5-6.0); WHITE BLOOD COUNT (AUTO) 11.5 K/uL (4.3-11.0)
[2016-09-24 08:10] LABS: CALCIUM, SERUM 8.1 mg/dL (8.5-10.1); CREATININE 1.7 mg/dL (0.6-1.3); POTASSIUM 3.2 mmol/L (3.5-5.1)
[2016-09-24] MEDS: LEVOTHYROXINE SODIUM 50 MCG TABLET PO SCH (08:56)
[2016-09-24] MEDS: ACIDOPHILUS/BULGARICUS 1 EACH TAB.CHEW GT SCH ×2 (08:56→17:41)
[2016-09-24] MEDS: FERROUS SULFATE UDC 300 MG/5 ML UDC GT SCH ×2 (08:56→17:41)
[2016-09-24] MEDS: LEVETIRACETAM SOL (5 ML) 100 MG/ML UDC GT SCH ×2 (08:56→21:07)
[2016-09-24] MEDS: FAMOTIDINE (20 MG) 20 MG TABLET PO SCH (08:56)
[2016-09-24] MEDS: CHOLECALCIFEROL 1,000 UNIT TABLET (VIT D3) GT SCH (08:56)
[2016-09-24] MEDS: ASCORBIC ACID 500 MG TABLET GT SCH (08:57)
[2016-09-24] MEDS: MULTIVIT, IRON, MIN NO. 8, FA 1 TAB TABLET GT SCH (08:57)
[2016-09-24] MEDS: HEPARIN SODIUM, PORCINE 5000 UNITS/1 ML VIAL SQ SCH ×2 (08:59→21:08)
[2016-09-24] MEDS ORDERED: FUROSEMIDE 40 MG TABLET GT SCH (09:00)
[2016-09-24] MEDS: MIDODRINE HCL (5MG) 5 MG TABLET GT SCH ×2 (09:00→17:41)
[2016-09-24] MEDS: AMIODARONE HCL 200 MG TABLET GT SCH (09:00)
[2016-09-24] MEDS ORDERED: SECONDARY IV SET 1 EA INFUS.SET MC ONE (12:16)
[2016-09-24] MEDS: POTASSIUM CL. PREMIX PERIPHER. 50 ML IV SCH ×3 (12:56→14:19)
[2016-09-24] MEDS: Potassium Chloride 20 MEQ in IV D5W 1,000 ML IV PRN (13:10)
[2016-09-24] MEDS: VANCOMYCIN 1 GM in IV D5W 250 ML IV SCH (17:47)
[2016-09-24] MEDS: FLUCONAZOLE (100 MG) 100 MG TABLET PO SCH (18:37)
--- NOTE | 2016-09-24 18:51 | NUR ---
RN CLOSING NOTES: No acute changes noted w/in shift. Pt tolerated prescribed mech vent settings, saturating at 100%. Suctioned secretions. On telemonitor, still SR w/ HR 86 bpm. On cont TF Novasource at 40 cc/hr via PEG kept patent & intact, no residual noted w/in shift. L wrist G 18 PL kept patent & intact w/ KCL 20 meqs in D5W 1L x 100 cc/hr infusing well. L AC G 18, SL, kept patent & intact w/ no signs of infection/ infiltration noted. FC kept patent & intact draining to adequate urine output. Needs attended. Kept well rested. Call light placed w/in reach. Bed kept low & in locked position. Will endorse to PM RN for MARY.
--- NOTE | 2016-09-24 20:13 | NUR ---
received pt from day shift, obtunded, on the vent, lungs congested, no edema, R chest drain intact, GT to feeding tolerates well, f/c good output, v/s stable, no pain, pt turned and repositioned.
[2016-09-25] VITALS (8 sets, daily range): BP systolic 88–105; BP diastolic 47–62
[2016-09-25] MEDS: IPRATROPIUM NEB FS 0.5 MG/2.5 ML AMPUL.NEB IH SCH ×4 (01:29→19:48)
[2016-09-25] MEDS: ALBUTEROL FS 2.5 MG/0.5 ML VIAL.NEB IH SCH ×4 (01:29→19:49)
[2016-09-25] MEDS: RENAL NOVASOURCE 1,000 ML BOTTLE GT PRN (03:18)
[2016-09-25] MEDS: Potassium Chloride 20 MEQ in IV D5W 1,000 ML IV PRN ×2 (03:18→16:22)
--- NOTE | 2016-09-25 04:15 | NUR ---
pt is resting in the bed, no acute distress overnight, v/s stable, no pain, pt cleaned, changed and repositioned q2hrs.
[2016-09-25] MEDS: PIPERACILLIN /TAZOBACTAM 2.25 G in IV D5W 50 ML IV SCH ×2 (05:11→12:21)
[2016-09-25] MEDS: METRONIDAZOLE 500 MG TABLET GT SCH ×3 (05:11→20:10)
[2016-09-25 07:24] LABS: BASOPHILS % (AUTO) 0.1 % (0.0-2.0); EOSINOPHILS % (AUTO) 0.3 % (0.0-6.0); HEMATOCRIT 29 % (39-51); HEMOGLOBIN 9.8 g/dL (13.5-17.5); LYMPHOCYTES # (AUTO) 0.8 /CMM (0.8-4.8); LYMPHOCYTES % (AUTO) 5.8 % (20.0-44.0); MEAN CORPUSCULAR HEMOGLOBIN 33 PG (26.0-33.0); MEAN CORPUSCULAR HGB CONC 34 g/dl (31.0-36.0); MEAN CORPUSCULAR VOLUME 97 fL (80-96); MONOCYTES # (AUTO) 0.8 /CMM (0.1-1.30); MONOCYTES % (AUTO) 6.1 % (2.0-12.0); NEUTROPHILS # (AUTO) 11.6 /CMM (1.8-8.9); NEUTROPHILS % (AUTO) 87.7 % (43.0-81.0); PLATELET COUNT (AUTO) 144 /CMM (150-450); RDW COEFFICIENT OF VARIATION 16.8 (11.5-15.0); RED BLOOD CELL COUNT(AUTO) 2.99 MIL/uL (4.5-6.0); WHITE BLOOD COUNT (AUTO) 13.2 K/uL (4.3-11.0)
--- NOTE | 2016-09-25 07:25 | NUR ---
RN INITIAL NOTES: Rec'd pt on bed, not in any distress, obtunded. Pt on mech vent via trach (Shiley 8 XLT) w/ ff settings: AC 10, TV 500, FiO2 35%, PEEP 5, saturating at 100%. Suctioned secretions. Pt on telemonitor, SR w/ HR 71 bpm. Pt PEG tube noted w/ hole, current feeding stopped. Pt has L wrist G 18 PL patent & intact w/ D5W + 20 meqs KCL x 100 cc/hr infusing well. Has L AC G 18, SL, flushed, C/D/I, w/ no signs of infection/ infiltration noted. Has patent & intact FC draining to adequate urine output. Has R chest tube clamped w/ dry & clean dressing noted. Needs attended. Provided comfort & safety measures. Call light placed w/in reach. Bed kept low & in locked position. Will continue to monitor.
[2016-09-25] MEDS: LEVOTHYROXINE SODIUM 50 MCG TABLET PO SCH (07:30)
[2016-09-25 07:35] LABS: CALCIUM, SERUM 8.1 mg/dL (8.5-10.1); CREATININE 1.7 mg/dL (0.6-1.3); POTASSIUM 3.8 mmol/L (3.5-5.1)
--- NOTE | 2016-09-25 08:22 | NUR ---
WOUND CARE CONSULT: PT PRESENTS WITH WOUNDS, PRESENT ON ADMISSION INCLUDING STAGE IV ULCER TO SACRAL AREA AND LEFT HIP STAGE III ULCER. RT CHEST WALL HAS PLEUREX DRAIN. DEFER TO MD FOR DRAIN. RECOMMEND SURGICAL CONSULT. ALL SKIN AND WOUND RECOMMENDATIONS DISCUSSED WITH NURSING STAFF AND STOCK LIFTER. FIRST STEP MATTRESS ORDERED. MD IN AGREEMENT WITH PLAN OF CARE. Addendum: 09/25/16 at 0824 by MILO POWELL WNDNU DRAIN IS CLAMPED AT THIS TIME.
[2016-09-25] MEDS ORDERED: HYDROGEL DRESSING 90 GM TUBE TP PRN (08:30)
[2016-09-25] MEDS ORDERED: Z GUARD REMEDY 2 OZ OINT TP PRN (08:30)
[2016-09-25] MEDS: FAMOTIDINE (20 MG) 20 MG TABLET PO SCH (09:00)
[2016-09-25] MEDS: ACIDOPHILUS/BULGARICUS 1 EACH TAB.CHEW GT SCH ×2 (09:00→17:00)
[2016-09-25] MEDS: LEVETIRACETAM SOL (5 ML) 100 MG/ML UDC GT SCH ×2 (09:00→20:10)
[2016-09-25] MEDS: MIDODRINE HCL (5MG) 5 MG TABLET GT SCH ×2 (09:00→17:00)
[2016-09-25] MEDS: FERROUS SULFATE UDC 300 MG/5 ML UDC GT SCH ×2 (09:00→17:00)
[2016-09-25] MEDS: FLUCONAZOLE (100 MG) 100 MG TABLET PO SCH (09:00)
[2016-09-25] MEDS: AMIODARONE HCL 200 MG TABLET GT SCH (09:00)
[2016-09-25] MEDS: MULTIVIT, IRON, MIN NO. 8, FA 1 TAB TABLET GT SCH (09:00)
[2016-09-25] MEDS: CHOLECALCIFEROL 1,000 UNIT TABLET (VIT D3) GT SCH (09:00)
[2016-09-25] MEDS: ASCORBIC ACID 500 MG TABLET GT SCH (09:00)
[2016-09-25] MEDS: VANCOMYCIN 1 GM in IV D5W 250 ML IV SCH (11:00)
[2016-09-25] MEDS: POLYVINYL ALCOHOL 15 ML BOTTLE EACHEYE PRN (11:12)
[2016-09-25] MEDS: Z GUARD REMEDY 2 OZ OINT TP SCH (11:12)
[2016-09-25] MEDS: DAKINS QUARTER STRENGTH (0.125%) 480 ML BOTTLE TOP SCH (11:13)
[2016-09-25] MEDS: HYDROGEL DRESSING 90 GM TUBE TP SCH (11:13)
[2016-09-25] MEDS: HEPARIN SODIUM, PORCINE 5000 UNITS/1 ML VIAL SQ SCH ×2 (11:19→20:09)
[2016-09-25] MEDS: CARVEDILOL 6.25 MG TABLET GT SCH ×2 (11:30→20:10)
--- NOTE | 2016-09-25 12:00 | NUR ---
RN NOTES: Dr. Fermin made aware of GI consult (Dr. Moore) for GT malfunction.
--- NOTE | 2016-09-25 12:00 | NUR ---
RN NOTES: Dr. Fermin made aware of GT malfunction w/ order of GI consult. Dr. Moore informed.
[2016-09-25 12:09] LABS: THYROID STIMULATING HORMONE 2.174 uIU/mL (0.358-3.74)
[2016-09-25] MEDS ORDERED: VANCOMYCIN 1 GM in IV D5W 250 ML IV SCH (17:00)
--- NOTE | 2016-09-25 17:00 | NUR ---
RN NOTES: Dr. Moore examined pt's PEG w/ orders & carried out.
--- NOTE | 2016-09-25 17:30 | NUR ---
RN NOTES: Consent for GT replacement done c/o pt's via phone call.
[2016-09-25] MEDS: MEROPENEM 500 MG in IV NS 0.9% 50 ML IV SCH (18:08)
--- NOTE | 2016-09-25 19:30 | NUR ---
RN CLOSING NOTES: No acute changes noted w/in shift. Pt tolerated prescribed mech vent settings, saturating at 100%. Suctioned secretions. On telemonitor, still SR w/ HR 82 bpm. PEG tube clamped d/t hole, for GT replacement artemio c/o Dr. Moore. Left VM to central supply for Fr. 22 PEG tube. L wrist G 18 PL kept patent & intact w/ KCL 20 meqs in D5W 1L x 100 cc/hr infusing well. L AC G 18, SL, kept patent & intact w/ no signs of infection/ infiltration noted. FC kept patent & intact draining to adequate urine output. Needs attended. Kept well rested. Call light placed w/in reach. Bed kept low & in locked position. Endorsed to PM RN NPO including meds & to collect specimen on the sacral area for wound cx.
--- NOTE | 2016-09-25 19:30 | NUR ---
RN INITIAL NOTES RECEIVED PT AWAKE ON BED, OBTUNDED, OPENS EYES ONLY. ON VENT, AC 10, TV 500, 35% FIO2, PEEP 5, SHILEY 7 XLT, SATURATING WELL, NO S/S OF RESP DISTRESS. CURRENTLY SR ON THE MONITOR, HR 90'S. RIGHT CHEST DRAIN IS INTACT, NO DRAINAGE NOTED. HARTMANN CATH IS INTACT. GTUBE IS LEAKING, CLAMPED, NPO FOR GT REPLACEMENT BY DR MARLOW TOMORROW. LEFT WRIST 18G AND LEFT AC 22G WITH 20 MEQ KCL IN D5W @ 100MLS/HR, FLUSHED AND PATENT, NO S/S OF INFILTRATION/INFECTION, DRESSING CDI. BED LOW AND LOCKED, SIDERAILS UP. WILL MONITOR
--- NOTE | 2016-09-25 20:11 | NUR ---
RN NOTES NON-ADMINISTERED SCHEDULED COREG, FLAGYL, AND KEPPRA PO DUE TO GTUBE MALFUNCTION AND NPO STATUS. FOR GTUBE REPLACEMENT TOMORROW IN AM
[2016-09-25] MEDS ORDERED: ACETAMINOPHEN 650 MG/SUPP.RECT RC ONE (22:31)
[2016-09-25] MEDS: ACETAMINOPHEN 650 MG/SUPP.RECT RC PRN (22:36)
[2016-09-26] VITALS (7 sets, daily range): BP systolic 83–112; BP diastolic 52–82
[2016-09-26] MEDS: IPRATROPIUM NEB FS 0.5 MG/2.5 ML AMPUL.NEB IH SCH ×4 (01:49→20:20)
[2016-09-26] MEDS: ALBUTEROL FS 2.5 MG/0.5 ML VIAL.NEB IH SCH ×4 (01:49→20:20)
[2016-09-26] MEDS: Potassium Chloride 20 MEQ in IV D5W 1,000 ML IV PRN ×2 (02:19→13:00)
[2016-09-26] MEDS: METRONIDAZOLE 500 MG TABLET GT SCH ×3 (04:00→21:16)
[2016-09-26] MEDS: MEROPENEM 500 MG in IV NS 0.9% 50 ML IV SCH ×2 (04:00→16:49)
--- NOTE | 2016-09-26 06:30 | NUR ---
RN CLOSING NOTES PT REMAINS STABLE OF THE MOMENT. ALL DUE MEDS, AM CARE PROVIDED. WILL ENDORSE TO AM RN
[2016-09-26 07:14] LABS: EOSINOPHILS # (AUTO) 0.1 /CMM (0.0-0.7); EOSINOPHILS % (AUTO) 0.3 % (0.0-6.0); HEMATOCRIT 31 % (39-51); HEMOGLOBIN 10.5 g/dL (13.5-17.5); LYMPHOCYTES # (AUTO) 0.9 /CMM (0.8-4.8); LYMPHOCYTES % (AUTO) 4.1 % (20.0-44.0); MEAN CORPUSCULAR HEMOGLOBIN 33 PG (26.0-33.0); MEAN CORPUSCULAR HGB CONC 34 g/dl (31.0-36.0); MEAN CORPUSCULAR VOLUME 96 fL (80-96); MONOCYTES # (AUTO) 1.1 /CMM (0.1-1.30); NEUTROPHILS # (AUTO) 19.8 /CMM (1.8-8.9); NEUTROPHILS % (AUTO) 90.6 % (43.0-81.0); RDW COEFFICIENT OF VARIATION 16.3 (11.5-15.0); RED BLOOD CELL COUNT(AUTO) 3.23 MIL/uL (4.5-6.0); WHITE BLOOD COUNT (AUTO) 21.9 K/uL (4.3-11.0)
[2016-09-26] MEDS: AMIODARONE HCL 200 MG TABLET GT SCH (07:22)
[2016-09-26] MEDS: LEVOTHYROXINE SODIUM 50 MCG TABLET PO SCH (07:22)
[2016-09-26] MEDS: CARVEDILOL 6.25 MG TABLET GT SCH ×2 (07:22→21:16)
[2016-09-26] MEDS: ASCORBIC ACID 500 MG TABLET GT SCH (07:23)
[2016-09-26] MEDS: LEVETIRACETAM SOL (5 ML) 100 MG/ML UDC GT SCH ×2 (07:23→21:16)
[2016-09-26] MEDS: MULTIVIT, IRON, MIN NO. 8, FA 1 TAB TABLET GT SCH (07:23)
[2016-09-26] MEDS: FERROUS SULFATE UDC 300 MG/5 ML UDC GT SCH ×2 (07:23→16:50)
[2016-09-26] MEDS: MIDODRINE HCL (5MG) 5 MG TABLET GT SCH ×2 (07:23→16:49)
[2016-09-26] MEDS: ACIDOPHILUS/BULGARICUS 1 EACH TAB.CHEW GT SCH ×2 (07:23→16:49)
[2016-09-26] MEDS: CHOLECALCIFEROL 1,000 UNIT TABLET (VIT D3) GT SCH (07:24)
[2016-09-26] MEDS: FAMOTIDINE (20 MG) 20 MG TABLET PO SCH (07:25)
--- NOTE | 2016-09-26 07:31 | NUR ---
SCIENTIFIC ARTIST RECEIVED PT IN BED, OBTUNDED PT UPPER EXTREMITY IS DECEREBRATED, RIGGED, PT ON VENT TRACH SETTINGS NOTED, SR HR 90S ON TELE VS STABLE, PT HAS HARTMANN CATH, PT IS NPO FOR GT REPLACEMENT, IV FLUIDS RUNNING ORDERED IV ACCESS PAPNET, TURN AND REPOSITION IN BED.
[2016-09-26] MEDS: FLUCONAZOLE (100 MG) 100 MG TABLET PO SCH (07:45)
[2016-09-26 08:17] LABS: ALBUMIN 1.9 g/dL (3.4-5.0); BILIRUBIN,TOTAL 0.6 mg/dL (0.2-1.0); CALCIUM, SERUM 8.4 mg/dL (8.5-10.1); CREATININE 1.6 mg/dL (0.6-1.3); POTASSIUM 4.3 mmol/L (3.5-5.1); TOTAL PROTEIN, SERUM 6.4 g/dL (6.4-8.2)
[2016-09-26 08:25] LABS: PLATELET COUNT (AUTO) 159 /CMM (150-450)
[2016-09-26 08:31] LABS: BAND % (MANUAL) 2 % (0.0-5.0); LYMPHOCYTES % (MANUAL) 2 % (16-48); NEUTROPHILS % (MANUAL) 94 (42-76)
[2016-09-26 08:32] LABS: MONOCYTES % (MANUAL) 2 % (0-11.0)
[2016-09-26] MEDS: DAKINS QUARTER STRENGTH (0.125%) 480 ML BOTTLE TOP SCH (09:13)
[2016-09-26] MEDS: HYDROGEL DRESSING 90 GM TUBE TP SCH (09:13)
[2016-09-26] MEDS: Z GUARD REMEDY 2 OZ OINT TP SCH (09:13)
--- NOTE | 2016-09-26 09:35 | NUR ---
RN NOTES RECEIVED PT ON BED, OBTUNDED PT UPPER EXTREMITY IS DECEREBRATED, RIGGED, VENT DEPENDENT , TRACH CARE DONE, TOLERATING CURRENT VENT SETTING WELL, SR HR 90S ON TELE , PT HAS HARTMANN CATH, PT IS NPO FOR GT REPLACEMENT, D5W WITH 20MEQ KCL RUNNING AT 100CC/HR , SR UP x3, BED IN LOWEST POSITION AND LOCKED , CONTINUE TO MONITOR PT CLOSELY AND NOTIFY MD FOR ANY SIGNIFICANT CHANGES.
[2016-09-26] MEDS: ACETAMINOPHEN 650 MG/SUPP.RECT RC PRN (09:42)
[2016-09-26] MEDS: HEPARIN SODIUM, PORCINE 5000 UNITS/1 ML VIAL SQ SCH ×2 (09:42→21:17)
--- NOTE | 2016-09-26 10:00 | NUR ---
olericulture professor pt has fever temp 101.1 rectal tylenol given as ordered cooling measures taken vs stable report given to Adriana Berman for continuity of care.
--- NOTE | 2016-09-26 12:00 | NUR ---
RN NOTES T=99.6 AT TIME .
[2016-09-26] MEDS ORDERED: DIATR MEGLU/DIATRIZOATE SODIUM 30 ML BOTTLE (GASTROGRAPHIN) ONE (12:58)
--- NOTE | 2016-09-26 13:26 | NUR ---
RN NOTES GT REPLACE BY DR MARLOW AT THE BEDSIDE . ABDOMINAL XRAY ORDER PER DR MARLOW FOR VERIFICATION OF GT PLACEMENT.
--- NOTE | 2016-09-26 14:45 | NUR ---
RN NOTES DR MARLOW NOTIFIED REGARDING ABDOMINAL XRAY RESULTS . TF RESTATED AT 40CC/HR PER ELE WARREN ORDER
[2016-09-26] MEDS ORDERED: VANCOMYCIN 1 GM in IV D5W 250 ML IV SCH (17:00)
[2016-09-26] MEDS ORDERED: SECONDARY IV SET 1 EA INFUS.SET MC ONE (17:48)
--- NOTE | 2016-09-26 18:18 | NUR ---
RN NOTES PT REMAINS THE SAME, TOLERATING TF WELL, IVF D/ERICH PER MD ORDER, TRACH CARE DONE, HARTMANN DARNING TO GRAVITY WITH YELLOW CLOUDY URINE, SR UP x3, CALL LIGHT WITHIN EASY REACH, NO SIGNIFICANT CHANGES NOTED ON THIS SHIFT.
--- NOTE | 2016-09-26 19:30 | NUR ---
OPENING RN NOTES: RECEIVED PT ON BED OBTUNDED, NOT IN APPARENT DISTRESS. [facility] WITH SETTINGS ORDERED; TOLERATED WELL. ST ON MONITOR HR AT 102 BPM. IV ACCESS ON LAC AND L WRIST G18 INTACT, FLUSHING WELL. GT INTACT, WITH ONGOING FEEDING ORDERED, NO RESIDUALS NOTED. FC INTACT, DRAINING TO A CLOSED SYSTEM. PLEURX ON R SIDE OF CHEST, CLAMPED AT THIS TIME. SAFETY MEASURES ENSURED. ASPIRATION PRECAUTIONS ENSURED AT ALL TIMES. MONITORED PATIENT CLOSELY.
[2016-09-26] MEDS ORDERED: IV NS 0.9% 250 ML IV ONE (20:58)
--- NOTE | 2016-09-26 21:00 | NUR ---
RN NOTES: RECEIVED CALL FROM LAB PERSONNEL WITH REPORT OF PRELIMINARY RESULT OF BLOOD CULTURE POSITIVE FOR GRAM + COCCI IN CLUSTERS.. RESULTS SAME PREVIOUS BLOOD CULTURE DONE ON 09/22/16. TO ENDORSE IN AM.
[2016-09-26] MEDS ORDERED: IV SET PRIMARY PUMP SET 1 EA INFUS.SET MC ONE (21:56)
[2016-09-27] VITALS (20 sets, daily range): BP systolic 77–102; BP diastolic 48–65
[2016-09-27] MEDS: ALBUTEROL FS 2.5 MG/0.5 ML VIAL.NEB IH SCH ×4 (01:24→19:49)
[2016-09-27] MEDS: IPRATROPIUM NEB FS 0.5 MG/2.5 ML AMPUL.NEB IH SCH ×4 (01:24→19:49)
--- NOTE | 2016-09-27 04:45 | NUR ---
RN NOTES: PATIENT NOTED TO BE FEBRILE WITH TEMP OF 100.0 AND BP OF 85/51 WHEN RECHECKED, WHEN RECHECKED IT READ 84/50 RECHECKED ON BOTH ARMS, STILL SBP'S AT 80'S. COOLING MEASURES DONE AND PRN TYLENOL GIVEN WELL. T ORE CHECK BP. CONTINUOUSLY MONITORED PT.
[2016-09-27] MEDS: METRONIDAZOLE 500 MG TABLET GT SCH ×3 (05:05→20:33)
[2016-09-27] MEDS: ACETAMINOPHEN 650 MG/20.3 ML UDC GT PRN ×2 (05:05→16:50)
[2016-09-27] MEDS: MEROPENEM 500 MG in IV NS 0.9% 50 ML IV SCH ×2 (05:12→16:52)
[2016-09-27] MEDS: POLYVINYL ALCOHOL 15 ML BOTTLE EACHEYE PRN (05:14)
[2016-09-27] MEDS ORDERED: SECONDARY IV SET 1 EA INFUS.SET MC ONE (05:31)
--- NOTE | 2016-09-27 06:30 | NUR ---
RN NOTES: RECEIVED CALL BACK FROM DR TOSCANO WITH ORDER TO ADMINISTER 500CC NS BOLUS TO INCREASE SBP TO 90'S IF BP REMAINS BELOW 90'S MD ORDERED TO GIVE ANOTHER 500CC NS. NOTED AND CARRIED OUT. RELAYED TO MD CURRENT PRELIMINARY BLOOD CULTURE RESULT. ALSO OBTAINED ORDER FOR STOOL CULTURE AND CDIFF. SPECIMEN OBTAINED AND SENT TO LAB. SAFETY MEASURES ENSURED. TO CONTINUE TO MONITOR PT. TO ENDORSE TO AM SHIFT RN
[2016-09-27] MEDS ORDERED: IV NS 0.9% 500 ML IV ONE ×3 (06:37→08:00)
[2016-09-27 07:26] LABS: EOSINOPHILS % (AUTO) 0.1 % (0.0-6.0); HEMATOCRIT 27 % (39-51); HEMOGLOBIN 9.3 g/dL (13.5-17.5); LYMPHOCYTES # (AUTO) 0.8 /CMM (0.8-4.8); LYMPHOCYTES % (AUTO) 3.9 % (20.0-44.0); MEAN CORPUSCULAR HEMOGLOBIN 33 PG (26.0-33.0); MEAN CORPUSCULAR HGB CONC 34 g/dl (31.0-36.0); MEAN CORPUSCULAR VOLUME 95 fL (80-96); MONOCYTES # (AUTO) 1.2 /CMM (0.1-1.30); MONOCYTES % (AUTO) 5.6 % (2.0-12.0); NEUTROPHILS % (AUTO) 90.4 % (43.0-81.0); PLATELET COUNT (AUTO) 144 /CMM (150-450); RED BLOOD CELL COUNT(AUTO) 2.87 MIL/uL (4.5-6.0)
--- NOTE | 2016-09-27 07:30 | NUR ---
RN NOTES PT ON BED, OBTUNDED, ON MECH VENT, NO FEVER, NO SOB, SATURATION 100 %, BLOOD PRESSURE LOW 76/50, POST 500 CC BOLUS, PER ORDER A SECOND BOLUS TO BE GIVEN, F/C IN PLACE DRAINING YELLOW CLOUDY URINE WITH SEDIMENT, G TUBE FEEDING RUNNING, NO RESIDUAL, IV SITES INTACT, PATENT, PT HAS PLEURX TUBE IN THE R LATERAL CHEST, CLAMPED. SAFETY MEASURES OBSERVED AT ALL TIMES, WILL FOLLOW UP WITH MD AND CONTINUE TO MONITOR.
[2016-09-27 07:34] LABS: ALBUMIN 1.6 g/dL (3.4-5.0); BILIRUBIN,TOTAL 0.3 mg/dL (0.2-1.0); CALCIUM, SERUM 7.8 mg/dL (8.5-10.1); CREATININE 1.7 mg/dL (0.6-1.3); POTASSIUM 3.7 mmol/L (3.5-5.1); TOTAL PROTEIN, SERUM 5.5 g/dL (6.4-8.2)
--- NOTE | 2016-09-27 08:30 | NUR ---
RN NOTES DR GALINDO ORDERED 3 L NS AT 500 ML/H OF IVF.
[2016-09-27] MEDS: MULTIVIT, IRON, MIN NO. 8, FA 1 TAB TABLET GT SCH (08:32)
[2016-09-27] MEDS: LEVETIRACETAM SOL (5 ML) 100 MG/ML UDC GT SCH ×2 (08:32→20:33)
[2016-09-27] MEDS: FLUCONAZOLE (100 MG) 100 MG TABLET PO SCH (08:32)
[2016-09-27] MEDS: ACIDOPHILUS/BULGARICUS 1 EACH TAB.CHEW GT SCH ×2 (08:33→16:51)
[2016-09-27] MEDS: LEVOTHYROXINE SODIUM 50 MCG TABLET PO SCH (08:33)
[2016-09-27] MEDS: CHOLECALCIFEROL 1,000 UNIT TABLET (VIT D3) GT SCH (08:33)
[2016-09-27] MEDS: MIDODRINE HCL (5MG) 5 MG TABLET GT SCH ×2 (08:33→16:51)
[2016-09-27] MEDS: ASCORBIC ACID 500 MG TABLET GT SCH (08:34)
[2016-09-27] MEDS: HEPARIN SODIUM, PORCINE 5000 UNITS/1 ML VIAL SQ SCH ×2 (08:36→20:39)
[2016-09-27] MEDS: FAMOTIDINE (20 MG) 20 MG TABLET PO SCH (08:39)
[2016-09-27] MEDS: FERROUS SULFATE UDC 300 MG/5 ML UDC GT SCH ×2 (08:39→16:51)
[2016-09-27] MEDS: CARVEDILOL 6.25 MG TABLET GT SCH (08:39)
[2016-09-27] MEDS: HYDROGEL DRESSING 90 GM TUBE TP SCH (08:41)
[2016-09-27] MEDS: DAKINS QUARTER STRENGTH (0.125%) 480 ML BOTTLE TOP SCH (08:41)
[2016-09-27] MEDS: Z GUARD REMEDY 2 OZ OINT TP SCH (08:43)
[2016-09-27] MEDS: AMIODARONE HCL 200 MG TABLET GT SCH ×2 (08:43→09:02)
[2016-09-27 09:04] LABS: BAND % (MANUAL) 2 % (0.0-5.0); LYMPHOCYTES % (MANUAL) 7 % (16-48); MONOCYTES % (MANUAL) 4 % (0-11.0); NEUTROPHILS % (MANUAL) 87 (42-76)
[2016-09-27] MEDS: IV NS 0.9% 1,000 ML IV PRN ×3 (09:40→14:16)
--- NOTE | 2016-09-27 09:55 | NUR ---
RN NOTE SPOKE WITH DR CLEVELAND REGARDING PLEUREX TUBE IN THE R LATERA CHEST WALL. HE ORDERED TO DRAIN IT EVERY 3 DAYS BY ATTACHING BAG/BOTTLE TO IT. WILL CARRY OUT AND MONITOR OUTPUT.
--- NOTE | 2016-09-27 14:50 | NUR ---
RN NOTES DRAINED PLEURX DRAIN 200 CC YELLOW CLEAR FOAMY, FLUID. PER DR CLEVELAND TO DRAIN IT EVERY 3 DAYS.
--- NOTE | 2016-09-27 15:00 | NUR ---
RN NOTES CONTACTED DR TOSCANO ABOUT PT CONDITION ABOUT BP AFTER FLUIDS, TEMP AND WBC RESULTS, ALBUMIN LEVEL, HE RECOMMENDED TO ADDRESS WITH ID DOCTOR.
--- NOTE | 2016-09-27 16:00 | NUR ---
RN NOTES PT IS BEING TRANSFERRED TO ICU, REPORT GIVEN TO MARK HERNANDEZ.
[2016-09-27] MEDS: VANCOMYCIN 0.75 GM in IV D5W 250 ML IV SCH (17:57)
[2016-09-27] MEDS ORDERED: IV NS 0.9% 250 ML IV ONE (18:25)
[2016-09-27] MEDS: NOREPINEPHRINE 8 MG in IV D5W 500 ML IV PRN (18:31)
--- NOTE | 2016-09-27 18:49 | NUR ---
CLINICAL ASSESSMENT MANAGER NOTE: RECEIVED PATIENT FROM TELE FLOOR OBTUNDED, ON VENT NOTED WITH STAS 7XLT AC 10 TV 500 JNT340% PEEP 5. NO DISTRESS NOTED. PATIENT NOTED TO BE STACHY ON MONITOR HR 102, TEMP 100.7. BP 80/48, LEVOPHED STARTED AND WILL TITRATE PER PROTOCOL TO MAINTAIN SBP> 90. GTUBE NOTED RUNNING NOVASOURCE AT 40ML/HR FOR 20HRS NO RESIDUAL NOTED. PATIENT NOTED WITH LEFT WRIST 18G AND LAC 18G, VANCOMYCIN RUNNING. HARTMANN DRAINING TO GRAVITY. PATIENT NOTED WITH MULTIPLE WOUNDS. DRESSINGS CLEAN DRY AND INTACT. PATIENT NOTED WITH RIGHT CHEST PLEURX WHICH IS CLAMPED. PER WATER TECHNICIAN PLEURX WAS DRAINED TODAY 5/10 200ML. PER WATER TECHNICIAN PATIENT NOTED WITH BLACK TARRY STOOL. PATIENT CLEAN AND DRY ON KCI, TURNED AND REPOSITIONED, EXTREMITIES OFFLOADED. SAFETY MEASURES OBSERVED. WILL ENDORSE TO PM SHIFT FOR CONTINUITY OF CARE.
--- NOTE | 2016-09-27 20:00 | NUR ---
received pt from day shift, obtunded, SR, receiving levo at 8mcg, on the vent, lungs congested, some generalized edema, GT to feeding tolerates well, f/c good output, R Pleurx intact, clamped, wounds noted, v/s stable, no pane, pt turned and repositioned.
[2016-09-28] VITALS (34 sets, daily range): BP systolic 84–133; BP diastolic 45–77
--- NOTE | 2016-09-28 00:52 | NUR ---
pt is resting in the bed, on Levophed at 8mcg, v/s stable, no pain, pt turned and repositioned q2hrs, tolerates feeding.
[2016-09-28] MEDS: IPRATROPIUM NEB FS 0.5 MG/2.5 ML AMPUL.NEB IH SCH ×3 (01:24→12:56)
[2016-09-28] MEDS: ALBUTEROL FS 2.5 MG/0.5 ML VIAL.NEB IH SCH ×3 (01:24→12:56)
[2016-09-28 04:23] LABS: EOSINOPHILS # (AUTO) 0.1 /CMM (0.0-0.7); EOSINOPHILS % (AUTO) 0.3 % (0.0-6.0); HEMATOCRIT 28 % (39-51); HEMOGLOBIN 9.3 g/dL (13.5-17.5); LYMPHOCYTES # (AUTO) 0.9 /CMM (0.8-4.8); LYMPHOCYTES % (AUTO) 3.5 % (20.0-44.0); MEAN CORPUSCULAR HEMOGLOBIN 32 PG (26.0-33.0); MEAN CORPUSCULAR HGB CONC 34 g/dl (31.0-36.0); MEAN CORPUSCULAR VOLUME 95 fL (80-96); MONOCYTES # (AUTO) 1.6 /CMM (0.1-1.30); MONOCYTES % (AUTO) 5.9 % (2.0-12.0); NEUTROPHILS # (AUTO) 23.6 /CMM (1.8-8.9); NEUTROPHILS % (AUTO) 90.3 % (43.0-81.0); PLATELET COUNT (AUTO) 151 /CMM (150-450); WHITE BLOOD COUNT (AUTO) 26.2 K/uL (4.3-11.0)
--- NOTE | 2016-09-28 04:35 | NUR ---
pt is resting in the bed, no acute distress overnight, receiving levo at 8mcg, tolerates feeding, v/s stable, no pain, pt cleaned, changed and repositioned q2hrs.
[2016-09-28] MEDS: MEROPENEM 500 MG in IV NS 0.9% 50 ML IV SCH ×2 (04:44→16:52)
[2016-09-28] MEDS: METRONIDAZOLE 500 MG TABLET GT SCH ×2 (04:44→12:59)
[2016-09-28 04:53] LABS: ALBUMIN 1.6 g/dL (3.4-5.0); BILIRUBIN,TOTAL 0.4 mg/dL (0.2-1.0); CALCIUM, SERUM 7.7 mg/dL (8.5-10.1); CREATININE 1.5 mg/dL (0.6-1.3); MAGNESIUM 1.9 mg/dL (1.8-2.4); PHOSPHORUS 2.9 mg/dL (2.5-4.9); POTASSIUM 3.4 mmol/L (3.5-5.1)
[2016-09-28 05:04] LABS: TOTAL PROTEIN, SERUM 5.5 g/dL (6.4-8.2)
[2016-09-28 05:48] LABS: EOSINOPHILS % (MANUAL) 4 % (0-4); LYMPHOCYTES % (MANUAL) 5 % (16-48); MONOCYTES % (MANUAL) 3 % (0-11.0); NEUTROPHILS % (MANUAL) 88 (42-76)
[2016-09-28] MEDS: ACETAMINOPHEN 650 MG/20.3 ML UDC GT PRN ×2 (05:54→11:30)
[2016-09-28] MEDS: NOREPINEPHRINE 8 MG in IV D5W 500 ML IV PRN ×2 (05:58→13:32)
--- NOTE | 2016-09-28 07:17 | NUR ---
RT PT RECEIVED TRACHED WITH A SHILEY 7 XLT ON THE VENT WITH NOTED SETTINGS. VENT ALARMS ARE SET AND AUDIBLE WITH BVM BY BEDSIDE. ADULT CAREGIVER CUFF PRESSURE NOTED. VENT IS PLUGGED INTO RED OUTLET. NO RESPIRATORY DISTRESS NOTED AT THIS TIME, WILL CONTINUE TO MONITOR. Addendum: 09/28/16 at 1430 by LUIS ANGEL WILLIAM RT Amended: Links added.
--- NOTE | 2016-09-28 07:20 | NUR ---
RN INITIAL NOTES PT IN BED, HOB ELEVATED 35 DEGREES, PT IS OBTUNDED. ON [facility] VENT SHILEY 7XLT, AC 10, TV 500, FIO2 35%, PEEP 5, ON TELE MONITOR WITH ST 100, NO SIGNS OF DISTRESS NOTED. PT HAS HARTMANN CATH DRAINING CLEAR YELLOW URINE. SKIN: SACRAL STAGE 4, LEFT HIP STAGE 3, AND RIGHT CHEST PLEUREX, ALL WOUND ORDERS CARRIED OUT. GT RUNNING NOVASOURCE @ 40 CC/HR, TOLERATING WELL, NO RESIDUAL NOTED. IV ON MAXIMILIANO PICC RUNNING LEVO @ 12 MCG, CDI, NO SIGNS OF INFECTION/INFILTRATION NOTED. CALL LIGHT WITHIN EASY REACH, SAFETY MEASURES MAINTAINED, WILL CONTINUE TO MONITOR AND FOLLOW MD ORDERS.
[2016-09-28] MEDS: CHOLECALCIFEROL 1,000 UNIT TABLET (VIT D3) GT SCH (08:05)
[2016-09-28] MEDS: ACIDOPHILUS/BULGARICUS 1 EACH TAB.CHEW GT SCH ×2 (08:05→16:53)
[2016-09-28] MEDS: LEVETIRACETAM SOL (5 ML) 100 MG/ML UDC GT SCH (08:05)
[2016-09-28] MEDS: FERROUS SULFATE UDC 300 MG/5 ML UDC GT SCH ×2 (08:05→16:53)
[2016-09-28] MEDS: FLUCONAZOLE (100 MG) 100 MG TABLET PO SCH (08:06)
[2016-09-28] MEDS: FAMOTIDINE (20 MG) 20 MG TABLET PO SCH (08:06)
[2016-09-28] MEDS: MIDODRINE HCL (5MG) 5 MG TABLET GT SCH ×2 (08:06→16:53)
[2016-09-28] MEDS: LEVOTHYROXINE SODIUM 50 MCG TABLET PO SCH (08:06)
[2016-09-28] MEDS: ASCORBIC ACID 500 MG TABLET GT SCH (08:06)
[2016-09-28] MEDS: MULTIVIT, IRON, MIN NO. 8, FA 1 TAB TABLET GT SCH (08:06)
[2016-09-28] MEDS: AMIODARONE HCL 200 MG TABLET GT SCH (08:07)
[2016-09-28] MEDS: DAKINS QUARTER STRENGTH (0.125%) 480 ML BOTTLE TOP SCH (08:07)
[2016-09-28] MEDS: HYDROGEL DRESSING 90 GM TUBE TP SCH (08:08)
[2016-09-28] MEDS: Z GUARD REMEDY 2 OZ OINT TP SCH (08:08)
[2016-09-28] MEDS: HEPARIN SODIUM, PORCINE 5000 UNITS/1 ML VIAL SQ SCH (08:34)
[2016-09-28] MEDS: IV NS 0.9% 1,000 ML IV PRN ×3 (09:05→13:32)
[2016-09-28] MEDS: POTASSIUM CHLORIDE 20 MEQ TAB.PRT.SR PO SCH ×3 (09:05→10:40)
--- NOTE | 2016-09-28 10:19 | NUR ---
RN NOTES PT CODED WITH BP 84/51, VFIB, PULSELESS, CODE BLUE CALLED. PT SHOCKED ONCE @ 1021 WITH ONE DOES OF EPI GIVEN @ 1022. PT IS NOW ST HIGH 90'S TO 110. WILL CONTINUE TO MONITOR.
[2016-09-28] MEDS ORDERED: EPINEPHRINE (1:10,000) SYRINGE 1 MG/10 ML DISP.SYRIN IVP ONE (10:29)
[2016-09-28 10:37] LABS: ABG BASE EXCESS -17.3 mmol/L; ABG OXYGEN SATURATION 98.3 % (92.0-98.5); ABG PH 7.108 (7.350-7.450); ABG PO2 204.2 mmHg (75.0-100.0); AaDO2 472.8 mmHg; COHb 0.3 % (0.5-1.5); MetHb 1.2 % (0.0-1.5); O2Hb 96.8 % (94.0-97.0); PEEP,BG 5 cm H2O; SITE, ABG Left Radial; VT, ABG 500 mL
--- NOTE | 2016-09-28 10:50 | NUR ---
RT PT FOUND IN PULSELESS VTACH, CPR STARTED AT 1019. BAGGED WITH 100% O2 WITH RN AND MD AT BEDSIDE. PT REGAINED PULSE PLACED BACK ON VENTILATOR WITH 100% FiO2. WILL CONTINUE TO MONITOR THE PT CLOSELY FOR ANY CHANGES. Addendum: 09/28/16 at 1055 by LUIS ANGEL WILLIAM RT Amended: Links added.
[2016-09-28] MEDS ORDERED: SODIUM BICARBONATE SYR 50 MEQ/50 ML DISP.SYRIN IV ONE (11:00)
--- NOTE | 2016-09-28 11:37 | NUR ---
RN NOTES PT HAS TEMP OF 101.6, TYLENOL GIVEN AND 250 CC OF ICE WATER, FAN ON WELL, WILL CONTINUE TO MONITOR.
--- NOTE | 2016-09-28 14:30 | NUR ---
RN NOTES PTS ARRIVED ON THE FLOOR STATING THE PT IS DNR. DOUBLE CHECKED THE PTS CHART AND THERE IS NO FORM STATING PTS CODE STATUS. CHANGED PTS CODE STATUS TO DNR WITH CHARGE NURSE PAOLA.
[2016-09-28] MEDS ORDERED: SECONDARY IV SET 1 EA INFUS.SET MC ONE (17:13)
[2016-09-28] MEDS: VANCOMYCIN 0.75 GM in IV D5W 250 ML IV SCH (17:26)
[2016-09-28] MEDS ORDERED: NOREPINEPHRINE 16 MG in IV D5W 500 ML IV PRN (17:30)
[2016-09-28] MEDS ORDERED: IV SET PRIMARY PUMP SET 1 EA INFUS.SET MC ONE (18:11)
--- NOTE | 2016-09-28 18:16 | NUR ---
RN NOTES PT CODED, THIS TIME DRAlton, NO RESUSCITATION PERFORMED OR CODE CALLED. PT WENT BACK INTO VFIB, SBP DROPPED TO 60'S. PRONOUNCED @ 1825 BY RN, CHARGE NURSE PAOLA, AND RT JOSE. CHARGE NURSE CALLED [facility], [employer] BOX TENDER, AND PTS ; ALSO CALLED DR. TOSCANO, WAITING FOR A CALL BACK. PER SHE DOES NOT HAVE A MORTUARY AND IS OKAY WITH [facility]. WILL REMOVE LINES AND PREPARE THE PT.
--- NOTE | 2016-09-28 18:40 | NUR ---
ICU/RN PT AT 18;30 PM. SIENA NOTIFIED.FAMILY HAS NO MORTUARY ARRAIGNMENT AT THIS TIME.BODY WILL BE TRANSFER TO [facility].DR TOSCANO NOTIFIED. [facility] NOTIFIED -ANJUM # [id number].
== END 2016-09-28 18:30 | disposition expired | DRG 870 ==
LOC: ER 20:53 → TELE1 23:13 → ICU 09-27 18:14
PROVIDERS: ADMIT Internal Medicine Nephrology; ATTEND Internal Medicine Rheumatology
PROC: 5A1955Z Respiratory Ventilation, Greater than 96 Consecutive Hours (ICD-10-PCS; principal; 2016-09-22)
PROC: B548ZZA Ultrasonography of Superior Vena Cava, Guidance (ICD-10-PCS; 2016-09-28)
PROC: 02HV33Z Insertion of Infusion Device into Superior Vena Cava, Percutaneous Approach (ICD-10-PCS; 2016-09-28)
DX: A41.9 Sepsis, unspecified organism (principal); G93.40 Encephalopathy, unspecified; R65.21 Severe sepsis with septic shock; J96.21 Acute and chronic respiratory failure with hypoxia; R53.2 Functional quadriplegia; L89.154 Pressure ulcer of sacral region, stage 4; E87.0 Hyperosmolality and hypernatremia; Z99.11 Dependence on respirator [ventilator] status; J98.11 Atelectasis; N17.9 Acute kidney failure, unspecified; E87.1 Hypo-osmolality and hyponatremia; I13.0 Hypertensive heart and chronic kidney disease with heart failure and stage 1 through stage 4 chronic kidney disease, or unspecified chronic kidney disease; E87.2 Acidosis; I49.01 Ventricular fibrillation; E86.0 Dehydration; E03.9 Hypothyroidism, unspecified; Z93.1 Gastrostomy status; I48.0 Paroxysmal atrial fibrillation; D64.9 Anemia, unspecified; Z87.891 Personal history of nicotine dependence; Z86.73 Personal history of transient ischemic attack (TIA), and cerebral infarction without residual deficits; Z66 Do not resuscitate; G40.909 Epilepsy, unspecified, not intractable, without status epilepticus; K21.9 Gastro-esophageal reflux disease without esophagitis; I50.9 Heart failure, unspecified; F09 Unspecified mental disorder due to known physiological condition; E88.09 Other disorders of plasma-protein metabolism, not elsewhere classified; E11.22 Type 2 diabetes mellitus with diabetic chronic kidney disease; D69.6 Thrombocytopenia, unspecified; L89.609 Pressure ulcer of unspecified heel, unspecified stage; N18.9 Chronic kidney disease, unspecified; R13.10 Dysphagia, unspecified
CPT/HCPCS: 31720; 36415; 36569; 36600; 71010-TC; 74000-TC; 80048-TC; 80053-TC; 80076-TC; 80202-TC; 81000-TC; 82272-TC; 82803-TC; 82962-TC; 83605-TC; 83735-TC; 83880; 84100-TC; 84439-TC; 84443-TC; 84484-TC; 85025-TC; 85730-TC; 86850-TC; 87040-TC; 87070-TC; 87081-TC; 87086-TC; 87186-TC; 92950-TC; 93307-TC; 94002-TC; 94003-TC; 94760-TC; 94762-TC; 99082-TC; A4216; A4606; A4623; A6248; A6253; A6402; A6403; C1751; C9113; J0171; J1644; J1953; J2185; J2543; J3370; J3480; J3490; J7030; J7040; J7050; J7060; J7070; J7120; Q9963; Z7610